=== PATIENT | female | born 1990 | race Caucasian/White ===

== ENCOUNTER 2018-06-02 15:26 | Emergency (ER) | payer OTHER, MEDICAID, SELFPAY ==
[2018-06-02 15:41] VITALS: BP 125/83; PULSE 87; RESP 14; TEMP 36.4; O2SAT 98; BMI 33.3
[2018-06-02] MEDS: diphenhydrAMINE 25 MG TABLET 50 MG PO (15:48)
--- NOTE | 2018-06-02 15:54 | ED.ALLEREA ---
HPI - Allergic Reaction <JENIFER Nagy - Last Filed: 06/02/18 21:37> General Chief complaint: Allergic Reaction Stated complaint: SWELLING OF RIGHT SIDE OF FACE Time Seen by Provider: 06/02/18 15:54 Source: patient Mode of arrival: ambulatory Limitations: no limitations History of Present Illness HPI narrative: 28-year-old healthy female that is a nonsmoker here for complaint of redness to her face and itching to her throat after she ate nuts earlier today. She denies any known allergies to nuts she denies having any prior food allergies. She states that she does not have any swelling to her mouth or tongue area. She is able to speak full sentences. She reports that the swelling to her face has resolved somewhat after eating nuts earlier today. She states that she had a pecans and almonds earlier today. She denies any rash. No other concerns or complaints at this timeframe. Related Data Home Medications Medication Instructions Recorded Confirmed buprenorphine-naloxone [Suboxone] 2 ea SUBLINGUAL QAM 06/02/18 06/02/18 duloxetine 30 mg PO BID 06/02/18 06/02/18 Previous Rx's Medication Instructions Recorded cetirizine 10 mg PO DAILY #7 tab 06/02/18 epinephrine [EpiPen 2-Arslan] 0.3 mg IM Q10M PRN #2 each 06/02/18 prednisone 40 mg PO DAILY #6 tab 06/02/18 Allergies Allergy/AdvReac Type Severity Reaction Status Date / Time ciprofloxacin [From Cipro] Allergy Severe Anaphylaxis Verified 06/02/18 15:48 sulfamethoxazole Allergy Severe Hives Verified 06/02/18 15:48 [From Septra] trimethoprim [From Septra] Allergy Severe Hives Verified 06/02/18 15:48 nitrofurantoin Allergy Intermediate Vomiting Verified 06/02/18 15:48 [From Macrobid] fentanyl AdvReac Severe Agitated Verified 06/02/18 15:48 morphine AdvReac Severe Agitated Verified 06/02/18 15:48 acetaminophen [From Vicodin] AdvReac Intermediate Nausea Verified 06/02/18 15:48 hydrocodone [From Vicodin] AdvReac Intermediate Nausea Verified 06/02/18 15:48 Review of Systems <JENIFER Nagy - Last Filed: 06/02/18 21:37> Constitutional Denies chills, Denies fever(s), Denies lethargy and Denies weakness Eyes Denies change in vision, Denies eye discharge, Denies irritation and Denies loss of vision ENT Comments: Redness to face and itching into the throat. Cardiovascular Denies chest pain, Denies irregular heart rhythm, Denies lightheadedness, Denies palpitations, Denies dyspnea, Denies dyspnea on exertion and Denies orthopnea Respiratory Denies cough, Denies dyspnea, Denies dyspnea on exertion and Denies wheezing Gastrointestinal Gastrointestinal: Denies abdominal pain, Denies change in bowel habits, Denies diarrhea, Denies nausea and Denies vomiting Genitourinary Denies hematuria, Denies flank pain, Denies urinary incontinence and Denies urinary urgency Musculoskeletal Denies back pain, Denies muscle weakness, Denies numbness and Denies tingling Integumentary/Breasts Denies pruritus, Denies erythema, Denies rash and Denies wounds Neurologic Denies confusion, Denies loss of vision, Denies numbness, Denies tingling and Denies weakness Psychiatric Denies anxiety, Denies confusion, Denies depression, Denies homicidal ideation and Denies suicidal ideation Endocrine Denies palpitations Hematologic/Lymphatic Denies easy bruising Allergic/Immunologic Denies wheezing PFSH <JENIFER Nagy - Last Filed: 06/02/18 21:37> Social History Smoking Status: Former smoker Exam <JENIFER Nagy - Last Filed: 06/02/18 21:37> Initial Vital Signs Initial Vital Signs: Vital Signs Temperature 97.6 F 06/02/18 15:41 Pulse Rate 87 06/02/18 15:41 Respiratory Rate 14 06/02/18 15:41 Blood Pressure 125/83 06/02/18 15:41 Pulse Oximetry 98 06/02/18 15:41 Const General: cooperative and well developed Nutritional Appearance: well nourished Orientation: alert, awake, oriented x3 and not confused [facility] Face and sinus: other (Redness to bilateral cheeks with swelling to right side. ) Mouth: oral mucosae normal, oropharynx normal and moist mucous membranes Throat: posterior oropharynx normal Eyes Conjunctivae: conjunctivae normal Sclera: sclerae normal Pupils: PERRL EOM: EOM intact bilaterally Resp Effort & Inspection: normal respiratory effort, able to speak in complete sentences, no respiratory distress and no use of accessory muscles Auscultation: clear to auscultation bilaterally, no rales, no rhonchi and no wheezes Cardio Rate: regular rate Rhythm: regular rhythm Heart Sounds: no click, no gallops, no murmurs and no rubs Pulses: normal peripheral pulses Skin General: no rashes or lesions noted, No jaundice and No petechiae Neuro General: alert, oriented x3, gait normal and no focal motor deficits Speech: speech normal Extrem General: full ROM, no clubbing, cyanosis or edema, no pedal edema and no calf tenderness <DO Eduard Kerr Last Filed: 06/11/18 16:38> Initial Vital Signs Initial Vital Signs: Vital Signs Temperature 97.6 F 06/02/18 15:41 Pulse Rate 87 06/02/18 15:41 Respiratory Rate 14 06/02/18 15:41 Blood Pressure 125/83 06/02/18 15:41 Pulse Oximetry 98 06/02/18 15:41 Course <JENIFER Nagy - Last Filed: 06/02/18 21:37> Orders Ordered: Discontinued Medications Diphenhydramine HCl (Benadryl) 50 mg PO NOW ONE Stop: 06/02/18 15:49 Last Admin: 06/02/18 15:48 Dose: 50 mg Prednisone (Deltasone) 40 mg PO NOW ONE Stop: 06/02/18 16:08 Last Admin: 06/02/18 16:10 Dose: 40 mg Vital Signs - 8 hr 06/02/18 15:41 06/02/18 16:18 06/02/18 17:45 Temperature 97.6 F Pulse Rate 87 71 75 Respiratory Rate 14 17 18 Blood Pressure 125/83 132/75 Blood Pressure [Right Arm] 131/71 Pulse Oximetry 98 98 97 <Oriana Tovar DO - Last Filed: 06/11/18 16:38> Orders Ordered: Discontinued Medications Diphenhydramine HCl (Benadryl) 50 mg PO NOW ONE Stop: 06/02/18 15:49 Last Admin: 06/02/18 15:48 Dose: 50 mg Prednisone (Deltasone) 40 mg PO NOW ONE Stop: 01/28/19 16:08 Last Admin: 06/02/18 16:10 Dose: 40 mg Vital Signs - 8 hr 06/02/18 15:41 06/02/18 16:18 06/02/18 17:45 Temperature 97.6 F Pulse Rate 87 71 75 Respiratory Rate 14 17 18 Blood Pressure 125/83 132/75 Blood Pressure [Right Arm] 131/71 Pulse Oximetry 98 98 97 MDM - Allergic Reaction <Robert AlJENIFER - Last Filed: 06/02/18 21:37> MDM Narrative Medical decision making narrative: She was given Benadryl and the emergency room and also prednisone. Her symptoms resolved after being observed in the emergency room. She states she desires to go home at this time she feels better. the nuts she ate earlier is suspicious however she is encouraged to look for possible other triggers. She is continued on prednisone for the next few days to help with anti-inflammatory effects. She is also given a prescription for EpiPen although no anaphylactic symptoms are present today will cover for worsening sensitivities. Follow up with primary care provider. For any worsening symptoms return to the emergency room. Discharge Plan Departure Patient Disposition: Home Clinical Impression: Allergic reaction Qualifiers: Encounter type: initial encounter Qualified Code(s): T78.40XA - Allergy, unspecified, initial encounter Discharge Date/Time: 06/02/18 17:45 Interventions: ED Discharge Assessment Last Done: 06/02/18 17:45 Instructions: DI for General Allergic Reactions Activity Restrictions/Additional Instructions: Signs and symptoms presents as allergic reaction most likely due to the nuts eating prior to arrival, however be aware of possible triggers in the environment other than the nuts. You are prescribed a short course of prednisone to help with anti-inflammatory effects. Also use cetirizine and antihistamine as directed. You also given a prescription for an EpiPen in case sensitivities worsen follow up with her primary care provider. Return emergency room for any worsening symptoms Prescriptions: New cetirizine 10 mg tablet 10 mg PO DAILY Qty: 7 RF: 0 prednisone 20 mg tablet 40 mg PO DAILY Qty: 6 RF: 0 epinephrine [EpiPen 2-Arslan] 0.3 mg/0.3 mL auto-injector 0.3 mg IM Q10M PRN (Reason: hypersensitivity reaction) Qty: 2 RF: 0 No Action duloxetine 30 mg capsule,delayed release(DR/EC) 30 mg PO BID RF: 0 buprenorphine-naloxone [Suboxone] 8-2 mg film 2 ea Sublingual QAM RF: 0 Referrals: [facility] [Provider Group] <Oriana Tovar DO - Last Filed: 06/11/18 16:38> Cosign ED Attending Cosignature Attestation: I was immediately available in the department for consultation. This documentation has been reviewed and I agree with assessment and plan. Supervised by Oriana Tovar DO
[2018-06-02] MEDS: predniSONE 20 MG TABLET 40 MG PO (16:10)
[2018-06-02 16:18] VITALS: BP 131/71; PULSE 71; RESP 17; O2SAT 98
[2018-06-02 17:45] VITALS: BP 132/75; PULSE 75; RESP 18; O2SAT 97
== END 2018-06-02 17:45 | disposition home or self-care (01) ==
PROVIDERS: Emergency Provider Nurse Practitioner Family
DX: T78.40XA Allergy, unspecified, initial encounter (principal)
CPT/HCPCS: 99282; 99283

== ENCOUNTER 2018-07-15 12:08 | Emergency (ER) | payer OTHER, MEDICAID, SELFPAY ==
[2018-07-15 12:14] VITALS: BP 138/85; PULSE 97; RESP 16; TEMP 37; O2SAT 97
--- NOTE | 2018-07-15 16:18 | DI.CT.S_ITS ---
PROCEDURE: CT HEAD/BRAIN WO CON INDICATIONS: Headache, Arnold-Chiari malformation surgery x3 TECHNIQUE: Noncontrast 4.5 mm thick angled axial sections acquired from the foramen magnum to the vertex, with coronal and sagittal reformats. For radiation dose reduction, the following was used: automated exposure control, adjustment of mA and/or kV according to patient size. COMPARISON: None. FINDINGS: Image quality: Excellent. CSF spaces: Basal cisterns are patent. No extra-axial fluid collections. Ventricles are normal in size and shape. Brain: No midline shift. No intracranial masses or hemorrhage. Vega-white matter interface is normal. Skull and face: Calvarium and visualized facial bones are intact, without suspicious lesions. Prior suboccipital craniotomy at the midline. Sinuses: Visualized sinuses and mastoids are clear. IMPRESSION: Prior suboccipital craniotomy consistent with Chiari malformation intervention. No source of current new headache is found. No comparison study from the past. Dictated by: Domenic Kennedy M.D. on 07/15/2018 at 15:48 Approved by: Domenic Kennedy M.D. on 07/15/2018 at 15:49
--- NOTE | 2018-07-15 16:23 | ED.HA ---
HPI - Headache General Chief Complaint: Headache Stated Complaint: migrane since yesterday,body hurts now Time Seen by Provider: 07/15/18 16:12 Source: patient Mode of arrival: ambulatory Limitations: no limitations History of Present Illness HPI Narrative: Patient is a 28-year-old female who presents with headache. He has been ongoing since yesterday. She has a history of Arnold-Chiari is and surgery for it x3. Is the 1st time they did not remove all of the tonsil the 3rd time was for an infection. She denies any fever or chills. She says this feels like his when she has had problems in the past. Her incision and scar site hurt. She feels nauseated no vomiting. She does not typically get headaches. She is on Suboxone currently. She was on narcotic medications for last 6 years and has been on getting off of those. MD Complaint: headache Related Data Home Medications Medication Instructions Recorded Confirmed buprenorphine-naloxone [Suboxone] 2 ea SUBLINGUAL QAM 06/02/18 06/02/18 duloxetine 30 mg PO BID 06/02/18 06/02/18 Previous Rx's Medication Instructions Recorded cetirizine 10 mg PO DAILY #7 tab 06/02/18 epinephrine [EpiPen 2-Arslan] 0.3 mg IM Q10M PRN #2 each 06/02/18 prednisone 40 mg PO DAILY #6 tab 06/02/18 Allergies Allergy/AdvReac Type Severity Reaction Status Date / Time ciprofloxacin [From Cipro] Allergy Severe Anaphylaxis Verified 06/02/18 15:48 sulfamethoxazole Allergy Severe Hives Verified 06/02/18 15:48 [From Septra] trimethoprim [From Septra] Allergy Severe Hives Verified 06/02/18 15:48 nitrofurantoin Allergy Intermediate Vomiting Verified 06/02/18 15:48 [From Macrobid] fentanyl AdvReac Severe Agitated Verified 06/02/18 15:48 morphine AdvReac Severe Agitated Verified 06/02/18 15:48 acetaminophen [From Vicodin] AdvReac Intermediate Nausea Verified 06/02/18 15:48 hydrocodone [From Vicodin] AdvReac Intermediate Nausea Verified 06/02/18 15:48 Review of Systems Review of Systems GENERAL: Denies chills, fatigue, malaise, fever, sweats, travel HEENT: Denies sinus pain, ear pain, sore throat, difficulty swallowing, neck pain RESPIRATORY: Denies dyspnea, cough, wheezing, hemoptysis, sputum. CARDIOVASCULAR: Denies chest pain, palpitations, orthopnea, edema GASTROINTESTINAL: Denies nausea, vomiting, abdominal pain, diarrhea, constipation, melena. : Denies dysuria, frequency, incontinence, hematuria, urinary retention, flank pain. MUSCULOSKELETAL: Denies weakness, joint pain, or bony pain SKIN: No rash, no erythema, no pruritus NEUROLOGIC: See HPI PSYCHIATRIC: No concerning psychosocial issues. 12 point review of systems is negative except for those stated above and HPI [facility] Medical History Arnold-Chiari malformation (Acute) Social History Smoking Status: Former smoker substance use type: painkillers Social History Smoking Status: Former smoker substance use type: painkillers Exam Initial Vital Signs Initial Vital Signs: Vital Signs Temperature 98.6 F 07/15/18 12:14 Pulse Rate 97 H 07/15/18 12:14 Respiratory Rate 16 07/15/18 12:14 Blood Pressure 138/85 07/15/18 12:14 Pulse Oximetry 97 07/15/18 12:14 GENERAL: Well-appearing, well-nourished and in no acute distress. HEENT: Head atraumatic,EOMI, pupils reactive, face symmetric, moist mucous membranes NECK: Is the patient's skin is extremely tender over the surgical scar. She does have limited flexion and extension due to pain. CARDIOVASCULAR: Regular rate and rhythm without murmurs, rubs or gallops. RESPIRATORY: Breath sounds equal bilaterally, no wheezes rales or rhonchi. ABDOMEN: Soft, nontender. Normoactive bowel sounds all 4 quadrants. No guarding or rebound. EXTREMITIES: Normal range of motion, no clubbing or edema. Neurovascularly intact NEUROLOGICAL: Alert and oriented x4.Normal gait and speech. Cranial nerves II through XII grossly intact. Good [id number], good [id number], strength equal bilaterally, no dysarthria or aphasia, sensation in tact to soft touch bilaterally, no visual changes, no facial droop SKIN: Warm, dry, no laceration, no petechiae, no rashes or lesions. Course Orders Ordered: ED Orders 07/15/18 16:18 CT head/brain wo con Stat 07/15/18 16:50 Complete Blood Count AUTO DIFF Stat Comprehensive Metabolic Panel Stat Discontinued Medications Diphenhydramine HCl (Benadryl) 25 mg IV NOW ONE Stop: 07/15/18 16:18 Last Admin: 07/15/18 17:00 Dose: 25 mg Sodium Chloride (Normal Saline 0.9%) 1,000 mls @ 1,000 mls/hr IV BOLUS ONE Stop: 07/15/18 17:16 Last Infusion: 07/15/18 18:09 Dose: 0 mls/hr Admin: 07/15/18 17:00 Dose: 1,000 mls/hr Ketorolac Tromethamine (Toradol) 30 mg IV NOW ONE Stop: 07/15/18 16:20 Last Admin: 07/15/18 17:00 Dose: 30 mg Prochlorperazine (Compazine) 10 mg IV NOW ONE Stop: 07/15/18 16:18 Last Admin: 07/15/18 16:58 Dose: 10 mg Vital Signs - 8 hr 07/15/18 12:14 07/15/18 16:58 07/15/18 17:00 Temperature 98.6 F 98.8 F Pulse Rate 97 H 83 Respiratory Rate 16 Blood Pressure 138/85 152/80 H Blood Pressure [Right Arm] Pulse Oximetry 97 07/15/18 17:04 Temperature 98.8 F Pulse Rate 83 Respiratory Rate 15 Blood Pressure Blood Pressure [Right Arm] 152/80 H Pulse Oximetry 99 MDM - Headache Lab Data Attestation: I reviewed the patient's lab results. Result diagrams: 07/15/18 16:50 07/15/18 16:50 Lab Results 07/15/18 07/15/18 Range/Units 16:50 16:50 WBC 7.2 (4.5-11.0) X10^3/uL RBC 4.05 (4.0-5.2) X10^6/uL Hgb 13.0 (12.0-16.0) g/dL Hct 38.0 (36-46) % MCV 94.0 (80-100) fL MCH 32.1 (26-34) PG MCHC 34.1 (30-36) % RDW 12.7 (11.6-14.8) % Plt Count 293 (150-400) X10^3/uL Neut % (Auto) 77.9 H (50-75) % Lymph % (Auto) 15.4 L (25-40) % [place] % (Auto) 5.3 (3-14) % Eos % (Auto) 1.1 L (2-4) % Baso % (Auto) 0.3 (0-2) % Neut # (Auto) 5600 (3112-4757) /uL Lymph # (Auto) 1100 (9851-8410) /uL [place] # (Auto) 400 (0-900) /uL Eos # (Auto) 100 (0-450) /uL Baso # (Auto) 0 (0-100) /uL Sodium 138 (137-145) mmol/L Potassium 4.1 (3.4-5.1) mmol/L Chloride 104 (98-107) mmol/L Carbon Dioxide 25 (22-32) mmol/L BUN 6 L (7-17) mg/dL Creatinine 0.50 L (0.52-1.04) mg/dL Estimated GFR > 60.0 (>60) mL/min BUN/Creatinine Ratio 12.0 (6-22) Glucose 99 (70-100) mg/dL Calcium 8.8 (8.4-10.2) mg/dL Total Bilirubin 0.6 (0.2-1.3) mg/dL AST 24 (14-36) IU/L ALT 26 (9-52) IU/L Alkaline Phosphatase 72 (38-126) U/L Total Protein 7.6 (6.3-8.2) g/dL Albumin 4.3 (3.5-5.0) g/dL Globulin 3.3 (1.7-4.1) g/dL Albumin/Globulin Ratio 1.3 (1.0-2.8) Point of Care Testing Test Results Negative Urine Dip Bedside Urine Glucose Negative Bedside Urine Bilirubin - Negative Bedside Urine Ketone - Negative Urine Specific [place] 1.015 Bedside Urine Occult Blood - Negative Bedside Urine pH 8.5 Bedside Urine Protein - Negative Bedside Urine Urobilinogen - Negative Bedside Urine Nitrite - Negative Bedside Urine Leukocytes - Negative Esterase Imaging Data CT scan - head: Radiologist's impression: PROCEDURE: CT HEAD/BRAIN WO CON INDICATIONS: Headache, Arnold-Chiari malformation surgery x3 TECHNIQUE: Noncontrast 4.5 mm thick angled axial sections acquired from the foramen magnum to the vertex, with coronal and sagittal reformats. For radiation dose reduction, the following was used: automated exposure control, adjustment of mA and/or kV according to patient size. COMPARISON: None. FINDINGS: Image quality: Excellent. CSF spaces: Basal cisterns are patent. No extra-axial fluid collections. Ventricles are normal in size and shape. Brain: No midline shift. No intracranial masses or hemorrhage. Vega-white matter interface is normal. Skull and face: Calvarium and visualized facial bones are intact, without suspicious lesions. Prior suboccipital craniotomy at the midline. Sinuses: Visualized sinuses and mastoids are clear. IMPRESSION: Prior suboccipital craniotomy consistent with Chiari malformation intervention. No source of current new headache is found. No comparison study from the past. Dictated by: Domenic Kennedy M.D. on 07/15/2018 at 15:48 MDM Narrative Medical decision making narrative: The patient overall is starting to feel better. Head CT is does not show any Arnold-Chiari malformation. Patient is afebrile no leukocytosis do not believe to have meningitis. At this time she feels better ready and able to go home. Discharge Plan Departure Patient Disposition: Home Clinical Impression: Headache Qualifiers: Headache type: unspecified Headache chronicity pattern: acute headache Intractability: not intractable Qualified Code(s): R51 - Headache Discharge Date/Time: 07/15/18 18:10 Interventions: ED Discharge Assessment Last Done: 07/15/18 18:09 Instructions: DI for Headache Activity Restrictions/Additional Instructions: *You have been diagnosed with headache *What to do: Blood work and CT scan are reassuring today *Continue to take medications as directed *Follow up with your primary care provider in 2-3 days *Return to ER if you should have any new, worsening or concerning symptoms Prescriptions: No Action duloxetine 30 mg capsule,delayed release(DR/EC) 30 mg PO BID RF: 0 buprenorphine-naloxone [Suboxone] 8-2 mg film 2 ea Sublingual QAM RF: 0 cetirizine 10 mg tablet 10 mg PO DAILY Qty: 7 RF: 0 prednisone 20 mg tablet 40 mg PO DAILY Qty: 6 RF: 0 epinephrine [EpiPen 2-Arslan] 0.3 mg/0.3 mL auto-injector 0.3 mg IM Q10M PRN (Reason: hypersensitivity reaction) Qty: 2 RF: 0
[2018-07-15 16:58] VITALS: BP 152/80; PULSE 83
[2018-07-15] MEDS: PROCHLORPERAZINE 10 MG/2 ML VIAL IV (16:58)
[2018-07-15 17:00] VITALS: TEMP 37.1
[2018-07-15] MEDS: diphenhydrAMINE 50 MG/ML VIAL 25 MG IV (17:00)
[2018-07-15] MEDS: KETOROLAC 60 MG/2 ML VIAL 30 MG IV (17:00)
[2018-07-15] MEDS: SODIUM CHLORIDE 0.9% 1,000 ML 1000 ML IV (17:00)
[2018-07-15 17:04] VITALS: BP 152/80; PULSE 83; RESP 15; TEMP 37.1; O2SAT 99
[2018-07-15 17:05] LABS: Add Manual Diff / Slide Review NO; Basophils Absolute Auto 0 /uL (0-100); Basophils Percent Auto 0.3 % (0-2); Eosinophils Absolute Auto 100 /uL (0-450); Eosinophils Percent Auto 1.1 % (2-4); Lymphocytes Absolute Auto 1100 /uL (1100-4500); Lymphocytes Percent Auto 15.4 % (25-40); Mean Corpuscular HGB Conc 34.1 % (30-36); Mean Corpuscular Hemoglobin 32.1 PG (26-34); Monocytes Absolute Auto 400 /uL (0-900); Monocytes Percent Auto 5.3 % (3-14); Neutrophils Absolute Auto 5600 /uL (1500-7000); Neutrophils Percent Auto 77.9 % (50-75); Platelet Count 293 X10^3/uL (150-400); Red Blood Cell Count 4.05 X10^6/uL (4.0-5.2); Red Cell Distribution Width 12.7 % (11.6-14.8); White Blood Cell Count 7.2 X10^3/uL (4.5-11.0)
[2018-07-15 17:13] LABS: Alanine Aminotransferase 26 IU/L (9-52); Albumin 4.3 g/dL (3.5-5.0); Albumin Globulin Ratio 1.3 (1.0-2.8); Alkaline Phosphatase 72 U/L (38-126); Aspartate Aminotransferase 24 IU/L (14-36); Bilirubin Total 0.6 mg/dL (0.2-1.3); Blood Urea Nitrogen 6 mg/dL (7-17); Calcium 8.8 mg/dL (8.4-10.2); Carbon Dioxide 25 mmol/L (22-32); Chloride 104 mmol/L (98-107); Estimated Glomerular Filt Rate > 60.0 mL/min (>60); Globulin 3.3 g/dL (1.7-4.1); Glucose 99 mg/dL (70-100); HEMOLYSIS < 15 (0-50); Potassium 4.1 mmol/L (3.4-5.1); Sodium 138 mmol/L (137-145); Total Protein 7.6 g/dL (6.3-8.2)
--- NOTE | 2018-07-15 17:36 | PC.NURSE ---
Patient given warm blankets and cold compress for head.
== END 2018-07-15 18:10 | disposition home or self-care (01) ==
PROVIDERS: Emergency Provider Emergency Medicine
DX: R51 Headache (principal)
CPT/HCPCS: 36591; 70450; 80053; 81003; 81025; 85025; 96361; 96374; 96375; 99283; 99285; J0780; J1200; J1885

== ENCOUNTER 2019-09-26 13:56 | Emergency (ER) | payer OTHER, SELFPAY ==
[2019-09-26 14:03] VITALS: BP 145/77; PULSE 81; RESP 16; TEMP 37; O2SAT 98; BMI 32.5
[2019-09-26 15:11] VITALS: BP 133/71; PULSE 77; RESP 20; O2SAT 99
--- NOTE | 2019-09-26 15:12 | ED.DENTAL ---
HPI - Dental/Oral <JENIFER Drake - Last Filed: 09/26/19 20:40> General Chief complaint: Dental/Oral Stated complaint: Tooth infection Time Seen by Provider: 09/26/19 14:13 Source: patient Mode of arrival: Ambulatory History of Present Illness HPI Narrative: 29yo female presents to the emergency department for right upper tooth pain that started about a week ago and has been increasing in severity. She states a few weeks ago she broke off part of her tooth, she was given a prescription for an antibiotic which helped relieve the pain. Five days after she finished the antibiotic, symptoms returned. She has has a dentist appointment scheduled later this week. She denies any fevers, chills, nausea, vomiting, diarrhea, chest pain, shortness of breath, or any other concerns. Related Data Home Medications Medication Instructions Recorded Confirmed buprenorphine-naloxone [Suboxone] 2 ea SUBLINGUAL QAM 06/02/18 06/02/18 duloxetine 30 mg PO BID 06/02/18 06/02/18 Previous Rx's Medication Instructions Recorded cetirizine 10 mg PO DAILY #7 tab 06/02/18 epinephrine [EpiPen 2-Arslan] 0.3 mg IM Q10M PRN #2 each 06/02/18 prednisone 40 mg PO DAILY #6 tab 06/02/18 amoxicillin-pot clavulanate 1 tab PO BID 7 Days #14 tab 09/26/19 [Augmentin] fluconazole 150 mg PO Q3D #2 tab 09/26/19 Allergies Allergy/AdvReac Type Severity Reaction Status Date / Time ciprofloxacin [From Cipro] Allergy Severe Anaphylaxis Verified 09/26/19 14:06 sulfamethoxazole Allergy Severe Hives Verified 09/26/19 14:06 [From Septra] trimethoprim [From Septra] Allergy Severe Hives Verified 09/26/19 14:06 nitrofurantoin Allergy Intermediate Vomiting Verified 09/26/19 14:06 [From Macrobid] fentanyl AdvReac Severe Agitated Verified 09/26/19 14:06 morphine AdvReac Severe Agitated Verified 09/26/19 14:06 acetaminophen [From Vicodin] AdvReac Intermediate Nausea Verified 09/26/19 14:06 hydrocodone [From Vicodin] AdvReac Intermediate Nausea Verified 09/26/19 14:06 Review of Systems <JENIFER Drake - Last Filed: 09/26/19 20:40> Review of Systems Narrative: REVIEW OF SYSTEMS: GENERAL: Denies fevers. HENT: No head trauma or hearing loss. Reports tooth pain, see HPI. CARDIOVASCULAR: No chest pain or syncope. RESPIRATORY: No shortness of breath. GASTROINTESTINAL: No nausea, vomiting, diarrhea, or constipation. MUSCULOSKELETAL: No weakness or injury. INTEGUMENTARY: No rash, lesions, or pruritus. NEURO: No memory loss, or confusion. Patient History <JENIFER Drake - Last Filed: 09/26/19 20:40> Medical History Arnold-Chiari malformation (Acute) Social History Smoking Status: Former smoker substance use type: painkillers Smoking Status: Former smoker alcohol intake frequency: 0-2 drinks per day Substance Use Type: prescription drug Exam <JENIFER Drake - Last Filed: 09/26/19 20:40> Initial Vital Signs Initial Vital Signs: Vital Signs Temperature 98.6 F 09/26/19 14:03 Pulse Rate 81 09/26/19 14:03 Respiratory Rate 16 09/26/19 14:03 Blood Pressure 145/77 H 09/26/19 14:03 Pulse Oximetry 98 09/26/19 14:03 PHYSICAL EXAMINATION: GENERAL: Well groomed, alert, and cooperative. Answers questions promptly and appropriately. Vital signs noted. HENT: Normocephalic, atraumatic. Ear canals patent. Oropharynx without erythema, multiple caries noted. Partially fractured tooth with a small amount of surrounding gingivitis noted tooth #15 versus #14. RESPIRATORY: Normal respiratory rate, trachea midline, airway patent. No stridor, nasal flaring or accessory muscle use. MUSCULOSKELETAL: Normal gait and coordination. Equal tone and mass bilaterally. EXTREMITIES: Moves all extremities. SKIN: Warm, dry, soft, appropriate color for ethnicity. No lesions, rashes, or wounds to visualized areas. NEURO: Alert and Oriented X 3. Good coordination. No ataxia or cognitive issues. PSYCH: Appropriate affect and mood. <Evelio Ferreira MD - Last Filed: 09/27/19 15:21> Initial Vital Signs Initial Vital Signs: Vital Signs Temperature 98.6 F 09/26/19 14:03 Pulse Rate 81 09/26/19 14:03 Respiratory Rate 16 09/26/19 14:03 Blood Pressure 145/77 H 09/26/19 14:03 Pulse Oximetry 98 09/26/19 14:03 Course <JENIFER Drake - Last Filed: 09/26/19 20:40> Vital Signs Vital signs: Vital Signs - 8 hr 09/26/19 14:03 09/26/19 15:11 Temperature 98.6 F Pulse Rate 81 77 Respiratory Rate 16 20 Blood Pressure 145/77 H 133/71 Pulse Oximetry 98 99 <Evelio Ferreira MD - Last Filed: 09/27/19 15:21> Vital Signs Vital signs: Vital Signs - 8 hr 09/26/19 14:03 09/26/19 15:11 Temperature 98.6 F Pulse Rate 81 77 Respiratory Rate 16 20 Blood Pressure 145/77 H 133/71 Pulse Oximetry 98 99 MDM - Dental/Oral <JENIFER Drake - Last Filed: 09/26/19 20:40> Medical Records Attestation: I reviewed the patient's medical records. Lab Data Attestation: I reviewed the patient's lab results. MDM Narrative Medical decision making narrative: 29-year-old female presents emergency department for tooth pain over the past few days following a fractured tooth. Exam with mild surrounding gingivitis, fractured tooth, and sensitivity concerning for tooth abscess. Patient was prescribed Augmentin due to recent treatment amoxicillin which did improve symptoms but pain and irritation return within 5 days of completion of antibiotics. Patient has a scheduled dentist appointment, we discussed the importance of keeping this appointment as this will treat because of continued infection. Return precautions given for new or worsening symptoms. No concern for sepsis due to lack of systemic symptoms such as fever, facial swelling, tachycardia, or any other concerns. Discharge Plan Departure Patient Disposition: Home Clinical Impression: Toothache, Dental caries, Dental abscess Discharge Date/Time: 09/26/19 15:12 Instructions: Tooth Abscess, DI for Dental Pain Activity Restrictions/Additional Instructions: Thank you for entrusting me with your care today. As discussed, I suspect your tooth pain is caused by an infection. I prescribed you antibiotics, please take these as directed. Follow up with your dentist as scheduled. Return emergency department for any new or worsening symptoms such as high fevers, uncontrollable vomiting, severe pain, or any other concerns. Prescriptions: New amoxicillin-pot clavulanate [Augmentin] 875-125 mg tablet 1 tab PO BID 7 Days Qty: 14 RF: 0 fluconazole 150 mg tablet 150 mg PO Q3D Qty: 2 RF: 0 No Action duloxetine 30 mg capsule,delayed release(DR/EC) 30 mg PO BID RF: 0 buprenorphine-naloxone [Suboxone] 8-2 mg film 2 ea Sublingual QAM RF: 0 cetirizine 10 mg tablet 10 mg PO DAILY Qty: 7 RF: 0 prednisone 20 mg tablet 40 mg PO DAILY Qty: 6 RF: 0 epinephrine [EpiPen 2-Arslan] 0.3 mg/0.3 mL auto-injector 0.3 mg IM Q10M PRN (Reason: hypersensitivity reaction) Qty: 2 RF: 0
== END 2019-09-26 15:12 | disposition home or self-care (01) ==
PROVIDERS: Emergency Provider Nurse Practitioner
DX: K08.89 Other specified disorders of teeth and supporting structures (principal); K02.9 Dental caries, unspecified; K04.7 Periapical abscess without sinus
CPT/HCPCS: 99281

== ENCOUNTER 2019-10-13 14:50 | Emergency (ER) | payer OTHER, SELFPAY ==
[2019-10-13 14:55] VITALS: BP 139/67; PULSE 98; RESP 22; TEMP 36.4; O2SAT 99
[2019-10-13] MEDS: SODIUM CHLORIDE 0.9% 1,000 ML 150 ML IV (15:16)
[2019-10-13 15:25] LABS: Add Manual Diff / Slide Review NO; Basophils Absolute Auto 100 /uL (0-100); Basophils Percent Auto 0.8 % (0-2); Eosinophils Absolute Auto 200 /uL (0-450); Eosinophils Percent Auto 2.9 % (2-4); Hemoglobin 12.8 g/dL (12.0-16.0); Lymphocytes Absolute Auto 2500 /uL (1100-4500); Lymphocytes Percent Auto 38.6 % (25-40); Mean Corpuscular HGB Conc 34.5 % (30-36); Mean Corpuscular Volume 92.6 fL (80-100); Monocytes Absolute Auto 500 /uL (0-900); Monocytes Percent Auto 7.8 % (3-14); Neutrophils Absolute Auto 3200 /uL (1500-7000); Neutrophils Percent Auto 49.9 % (50-75); Platelet Count 291 X10^3/uL (150-400); Red Cell Distribution Width 12.7 % (11.6-14.8); White Blood Cell Count 6.4 X10^3/uL (4.5-11.0)
--- NOTE | 2019-10-13 15:28 | ED_ITS ---
HPI - General Adult General Chief complaint: Abdominal Pain Stated complaint: rt side cramping Time Seen by Provider: 10/13/19 15:21 Source: patient Mode of arrival: Ambulatory Limitations: no limitations History of Present Illness HPI narrative: Patient is a 29-year-old female here for evaluation of right- sided flank ?cramping? she states that the symptoms started this morning after she woke up. She went to bed last night without any problems. Has not had a menstrual cycle in the past several weeks. She does have the implanon in place. She states she has urinated multiple times today which she thinks is p otentially more frequently than normal which has not changed any of her symptoms. Has not had a bowel movement today. No nausea or vomiting. Has had her appendix out but no other abdominal surgeries. He states that the pain initially started as constant and now has become intermittent. No fevers. Related Data Home Medications Medication Instructions Recorded Confirmed buprenorphine-naloxone [Suboxone] 2 ea SUBLINGUAL QAM 06/02/18 06/02/18 duloxetine 30 mg PO BID 06/02/18 06/02/18 Previous Rx's Medication Instructions Recorded cetirizine 10 mg PO DAILY #7 tab 06/02/18 epinephrine [EpiPen 2-Arslan] 0.3 mg IM Q10M PRN #2 each 06/02/18 prednisone 40 mg PO DAILY #6 tab 06/02/18 fluconazole 150 mg PO Q3D #2 tab 09/26/19 Allergies Allergy/AdvReac Type Severity Reaction Status Date / Time ciprofloxacin [From Cipro] Allergy Severe Anaphylaxis Verified 09/26/19 14:06 sulfamethoxazole Allergy Severe Hives Verified 09/26/19 14:06 [From Septra] trimethoprim [From Septra] Allergy Severe Hives Verified 09/26/19 14:06 nitrofurantoin Allergy Intermediate Vomiting Verified 09/26/19 14:06 [From Macrobid] fentanyl AdvReac Severe Agitated Verified 09/26/19 14:06 morphine AdvReac Severe Agitated Verified 09/26/19 14:06 acetaminophen [From Vicodin] AdvReac Intermediate Nausea Verified 09/26/19 14:06 hydrocodone [From Vicodin] AdvReac Intermediate Nausea Verified 09/26/19 14:06 Review of Systems Constitutional Constitutional: Denies fever(s) Cardiovascular Cardiovascular: Denies chest pain and Denies dyspnea Respiratory Respiratory: Denies dyspnea Gastrointestinal Comments: Right-sided flank cramping Genitourinary Comments: Urinary frequency without hematuria Musculoskeletal Musculoskeletal: Denies arthralgias and Denies myalgias Integumentary/Breasts Skin/Breast: Denies rash Neurologic Neurologic: Denies behavioral changes Psychiatric Psychiatric: Denies behavioral changes Hematologic/Lymphatic Hematologic/Lymphatic: Denies easy bleeding and Denies easy bruising Patient History Medical History Arnold-Chiari malformation (Acute) Social History Smoking Status: Former smoker substance use type: painkillers Smoking Status: Former smoker alcohol intake frequency: 0-2 drinks per day Substance Use Type: prescription drug Exam Initial Vital Signs Initial Vital Signs: Vital Signs Temperature 97.5 F L 10/13/19 14:55 Pulse Rate 98 H 10/13/19 14:55 Respiratory Rate 22 10/13/19 14:55 Blood Pressure 139/67 10/13/19 14:55 Pulse Oximetry 99 10/13/19 14:55 Const General: cooperative, comfortable and well developed Limitations: mental status not altered HENMT Head: normal to inspection and normocephalic Resp Effort & Inspection: normal respiratory effort Auscultation: clear to auscultation bilaterally Cardio Rate: regular rate Rhythm: regular rhythm GI Inspection: non-distended Palpation: soft, No firm and No tender Back/Spine/Pelvis Back: No CVA tenderness Skin Lesions: no lesions Rashes: no rashes Neuro General: patient alert and patient awake Cognition: normal cognition Speech: speech normal Extrem General: normal to inspection and capillary refill normal Psych Appearance: grossly normal and well kempt Scores GCS [place] coma scale eye opening: Spontaneous [place] coma scale verbal response: Orientated [place] coma scale motor response: Obey commands [place] coma scale total score: 15 Course Orders Ordered: ED Orders 10/13/19 15:15 Complete Blood Count AUTO DIFF Stat Comprehensive Metabolic Panel Stat Lipase Stat 10/13/19 15:29 CT kidney ureter bladder (KUB) Stat Sodium Chloride (Normal Saline 0.9%) 1,000 mls @ 150 mls/hr IV CONT MARIAH Last Admin: 10/13/19 15:16 Dose: 150 mls/hr Documented by: DAVI Vital Signs Vital signs: Vital Signs - 8 hr 10/13/19 14:55 Temperature 97.5 F L Pulse Rate 98 H Respiratory Rate 22 Blood Pressure 139/67 Pulse Oximetry 99 Medical Decision Making Lab Data Lab results reviewed: Yes I reviewed the patient's lab results. Result diagrams: 10/13/19 15:15 10/13/19 15:15 Labs: Lab Results 10/13/19 10/13/19 Range/Units 15:15 15:15 WBC 6.4 (4.5-11.0) X10^3/uL RBC 4.00 (4.0-5.2) X10^6/uL Hgb 12.8 (12.0-16.0) g/dL Hct 37.0 (36-46) % MCV 92.6 (80-100) fL MCH 32.0 (26-34) PG MCHC 34.5 (30-36) % RDW 12.7 (11.6-14.8) % Plt Count 291 (150-400) X10^3/uL Neut % (Auto) 49.9 L (50-75) % Lymph % (Auto) 38.6 (25-40) % [place] % (Auto) 7.8 (3-14) % Eos % (Auto) 2.9 (2-4) % Baso % (Auto) 0.8 (0-2) % Neut # (Auto) 3200 (8337-5499) /uL Lymph # (Auto) 2500 (0337-9364) /uL [place] # (Auto) 500 (0-900) /uL Eos # (Auto) 200 (0-450) /uL Baso # (Auto) 100 (0-100) /uL Sodium 138 (137-145) mmol/L Potassium 3.7 (3.4-5.1) mmol/L Chloride 103 (98-107) mmol/L Carbon Dioxide 27 (22-32) mmol/L BUN 10 (7-17) mg/dL Creatinine 0.54 (0.52-1.04) mg/dL Estimated GFR > 60.0 (>60) mL/min BUN/Creatinine Ratio 18.5 (6-22) Glucose 98 (70-100) mg/dL Calcium 9.4 (8.4-10.2) mg/dL Total Bilirubin 0.4 (0.2-1.3) mg/dL AST 23 (14-36) IU/L ALT 13 (<35) IU/L Alkaline Phosphatase 56 (38-126) U/L Total Protein 8.2 (6.3-8.2) g/dL Albumin 4.7 (3.5-5.0) g/dL Globulin 3.5 (1.7-4.1) g/dL Albumin/Globulin Ratio 1.3 (1.0-2.8) Lipase 46 (23-300) U/L Point of Care Testing Test Results Negative Urine Dip Bedside Urine Glucose Negative Bedside Urine Bilirubin - Negative Bedside Urine Ketone - Negative Urine Specific [place] 1.030 Bedside Urine Occult Blood - Negative Bedside Urine pH 5.5 Bedside Urine Protein - Negative Bedside Urine Urobilinogen - Negative Bedside Urine Nitrite - Negative Bedside Urine Leukocytes - Negative Esterase Point of care testing: Point of Care Testing Test Results Negative Urine Dip Bedside Urine Glucose Negative Bedside Urine Bilirubin - Negative Bedside Urine Ketone - Negative Urine Specific [place] 1.030 Bedside Urine Occult Blood - Negative Bedside Urine pH 5.5 Bedside Urine Protein - Negative Bedside Urine Urobilinogen - Negative Bedside Urine Nitrite - Negative Bedside Urine Leukocytes - Negative Esterase Imaging Data CT scan - abdomen/pelvis: Radiologist's Impression: [place] [id number] CT Scan Report Signed Patient: Rula Betancourt [facility]#: [id number] : 1990Acct:[id number] Age/Sex: te of Service: 10/13/19 Loc: ED Accession Number: [id number] Procedure: CT kidney ureter bladder (KUB) Ordering Provider: Topher Garza D.O. PROCEDURE: CT KIDNEY URETER BLADDER (KUB) INDICATIONS: Right-sided pain concern for renal stone TECHNIQUE: Noncontrast 5 mm thick sections acquired from the diaphragms to the symphysis. 5 mm thick coronal and sagittal reformats were then performed. For radiation dose reduction, the following was used: automated exposure control, adjustment of mA and/or kV according to patient size. COMPARISON: None. FINDINGS: Image quality: Diagnostic. Lung bases: Lung bases are clear. Heart size is normal. Urinary system: The kidneys are normal in size. No renal calculi are evident. Please note that evaluation of the kidneys for subtle renal lesions is suboptimal/inadequate for evaluation of cystic or solid lesions. No obvious renal lesions are identified. No hydronephrosis is present. However, there is slight prominence of the right renal collecting system and proximal right ureter when compared to the left. Near the vesicoureteral junction on the right, there is a 1 mm calcification identified (image 80, series 2), which could potentially represent a distal right ureteral calculus. However, the distal ureter is not adequately seen and this could potentially simply represent a vascular calcification. No definite left renal calculi are identified. Other solid organs: Liver is normal in size. Gallbladder is not enlarged or inflamed. Pancreas is normal in contours. Spleen has a bulky appearance, but is not significantly enlarged. No adrenal nodules. Peritoneum and bowel: The stomach is unremarkable. The small bowel loops are nondilated. There is a moderate to large amount of residual stool identified within the colon. There is no free fluid, loculated fluid collection or free air. The appendix is surgically absent. Nodes and vessels: No retroperitoneal or mesenteric adenopathy by size criteria. Aorta and inferior vena cava are normal in caliber. Other pelvic soft tissues: No free pelvic fluid. No inguinal hernias or adenopathy. The uterus and ovaries are not enlarged, but also are not adequately characterized on CT. Bones: No suspicious bony lesions. No vertebral body compression fractures. Mild degenerative changes of the imaged thoracolumbar spine are present. There moderate degenerative changes of the sacroiliac joints. IMPRESSION: 1. Questionable punctate (1 mm) distal right ureteral calculus. There is no hydronephrosis or hydroureter. 2. No nephrolithiasis. 3. Possible constipation. No bowel obstruction. Dictated by: Dominick Goodrich M.D. on 10/13/2019 at 14:51 Approved by: Dominick Goodrich M.D. on 10/13/2019 at 14:58 MDM Narrative Medical decision making narrative: Patient's history and physical exam is consistent with a right-sided ureteral stone/renal colic. I have low suspicion for pyelonephritis. Kidney functions unremarkable. Patient does take Suboxone so does not want any pain medication. No fevers. I did discuss the CT scan findings with her. Discussed return precautions and follow-up instructions. She expressed understanding and agreement. Discharge Plan Departure Patient Disposition: Home Clinical Impression: Renal colic on right side Instructions: DI for Kidney Stones Activity Restrictions/Additional Instructions: Be sure to drink plenty of fluids. The stone is of a size that you should pass it on your own. If you develop the inability to urinate or fevers were the abdominal pain changes please return to the emergency department for any new or worsening symptoms. Prescriptions: No Action duloxetine 30 mg capsule,delayed release(DR/EC) 30 mg PO BID RF: 0 buprenorphine-naloxone [Suboxone] 8-2 mg film 2 ea Sublingual QAM RF: 0 cetirizine 10 mg tablet 10 mg PO DAILY Qty: 7 RF: 0 prednisone 20 mg tablet 40 mg PO DAILY Qty: 6 RF: 0 epinephrine [EpiPen 2-Arslan] 0.3 mg/0.3 mL auto-injector 0.3 mg IM Q10M PRN (Reason: hypersensitivity reaction) Qty: 2 RF: 0 fluconazole 150 mg tablet 150 mg PO Q3D Qty: 2 RF: 0 Referrals: Jarocho Mckeon MD [Primary Care Provider] -
[2019-10-13 15:42] LABS: Alanine Aminotransferase 13 IU/L (<35); Albumin 4.7 g/dL (3.5-5.0); Albumin Globulin Ratio 1.3 (1.0-2.8); Alkaline Phosphatase 56 U/L (38-126); Aspartate Aminotransferase 23 IU/L (14-36); BUN Creatinine Ratio 18.5 (6-22); Bilirubin Total 0.4 mg/dL (0.2-1.3); Blood Urea Nitrogen 10 mg/dL (7-17); Calcium 9.4 mg/dL (8.4-10.2); Carbon Dioxide 27 mmol/L (22-32); Chloride 103 mmol/L (98-107); Estimated Glomerular Filt Rate > 60.0 mL/min (>60); Globulin 3.5 g/dL (1.7-4.1); Glucose 98 mg/dL (70-100); HEMOLYSIS < 15 (0-50); Lipase 46 U/L (23-300); Potassium 3.7 mmol/L (3.4-5.1); Sodium 138 mmol/L (137-145); Total Protein 8.2 g/dL (6.3-8.2)
[2019-10-13 16:39] VITALS: BP 129/78; PULSE 78; RESP 18; O2SAT 98
== END 2019-10-13 16:39 | disposition home or self-care (01) ==
PROVIDERS: Emergency Provider Emergency Medicine; PCP Internal Medicine
DX: N20.0 Calculus of kidney (principal)
CPT/HCPCS: 36415; 74176; 80053; 81003; 81025; 83690; 85025; 96360; 99284

== ENCOUNTER 2019-10-24 02:19 | Observation (INO) | payer OTHER, SELFPAY ==
[2019-10-24] VITALS (11 sets, daily range): BP systolic 120–149; BP diastolic 63–86; PULSE 80–117; RESP 16–20; TEMP 36.1–37.8; O2SAT 93–100; BMI 33.8
--- NOTE | 2019-10-24 02:29 | DI.CT.S_ITS ---
PROCEDURE: CT HEAD/BRAIN WO CON INDICATIONS: worst headache of life TECHNIQUE: Noncontrast 4.5 mm thick angled axial sections acquired from the foramen magnum to the vertex, with coronal and sagittal reformats. For radiation dose reduction, the following was used: automated exposure control, adjustment of mA and/or kV according to patient size. COMPARISON: [facility], CT, CT HEAD/BRAIN WO CON, 07/15/2018, 16:20. FINDINGS: Image quality: Diagnostic. CSF spaces: Basal cisterns are patent. No extra-axial fluid collections. Ventricles are normal in size and shape. Brain: No midline shift. No intracranial masses or hemorrhage. Vega-white matter interface is normal. Skull and face: Postsurgical changes are again evident related to a posterior suboccipital decompression. Postoperative changes are similar to the previous exam. No recurrent Chiari malformation is appreciated. Calvarium and visualized facial bones are intact, without suspicious lesions. Sinuses: Visualized sinuses and mastoids are clear. IMPRESSION: Stable head CT. No acute intracranial hemorrhage. Note: The preliminary report provided by [facility] [facility] is concordant with the final report. Dictated by: Dominick Goodrich M.D. on 10/24/2019 at 8:00 Approved by: Dominick Goodrich M.D. on 10/24/2019 at 8:02
--- NOTE | 2019-10-24 02:29 | DI.CT.S_ITS ---
PROCEDURE: CT SOFT TISSUE NECK W CON INDICATIONS: severe pain, redness, overlying surgical scar, fever TECHNIQUE: After the administration of intravenous contrast, 3.0 mm axial sections acquired from the sella to the aortic arch. Additional oblique axial 3.0 mm sections acquired through the pharynx. 3 mm thick coronal and sagittal reformats were generated. For radiation dose reduction, the following was used: automated exposure control. COMPARISON: None. FINDINGS: Image quality: Diagnostic. Lymph nodes: No enlarged lymph nodes seen throughout the neck. Vessels: Visualized vasculature appears patent. Neck spaces: The oropharynx, nasopharynx, and pharynx demonstrate no mucosal lesions. The vocal cords, false vocal cords, pyriform sinuses, epiglottis, vallecula, and tongue base all appear normal. Extramucosal spaces appear unremarkable. Glands: The parotid and submandibular glands appear normal. Thyroid gland is not enlarged or adequately characterized. Miscellaneous: Visualized brain and orbits appear normal. Lung apices appear clear. Superficial soft tissues appear normal. Bones: No suspicious bony lesions. Visualized sinuses and mastoids appear unremarkable. Postoperative changes are present related to a a suboccipital decompression, compatible with the patient's history of previous Chiari malformation decompression. Incidental note is made of multiple small posterior disc bulges within the upper and lower cervical spine, not adequately characterized. IMPRESSION: 1. Postoperative changes related to a occipital decompression. 2. Small cervical disc bulges. The need for better characterization utilizing MRI may be determined clinically. Note: The preliminary report provided by [employer] is concordant with the final report. Dictated by: Dominick Goodrich M.D. on 10/24/2019 at 7:55 Approved by: Dominick Goodrich M.D. on 10/24/2019 at 7:58
--- NOTE | 2019-10-24 02:29 | ED_ITS ---
HPI - Headache General Chief Complaint: Headache Stated Complaint: n/v skin hurts head is pounding Time Seen by Provider: 10/24/19 02:20 Source: patient Mode of arrival: Ambulatory Limitations: no limitations History of Present Illness HPI Narrative: 29-year-old female former smoker with history of kidney stones and Arnold-Chiari malformation status post surgical repair presents with a chief complaint gradually worsening headache over the past day or 2 with nausea, fever as high as 100.2 and burning and tingling at the base of her neck running down into her mid upper spine. She states that every time she stands her pain becomes excruciating and she nearly passes. She recently had a tooth removed and was seen here about a week ago for a kidney stone but is otherwise been in her normal state of health. She states that standing up and bright lights make her headache worse. Though she has this burning sensation in her neck she denies much in the way of painful range of motion MD Complaint: headache Onset (ago): hour(s) Onset description: gradual Location: occipital Severity: severe Severity scale (1-10): 10 Quality: aching, throbbing and squeezing Relieving factors: nothing Exacerbating factors: sitting/standing and light Context: occurred at rest Associated symptoms: nausea and neck stiffness Related Data Home Medications Medication Instructions Recorded Confirmed buprenorphine-naloxone [Suboxone] 2 ea SUBLINGUAL QAM 06/02/18 10/24/19 mirtazapine 15 mg PO BEDTIME 10/24/19 10/24/19 Allergies Allergy/AdvReac Type Severity Reaction Status Date / Time ciprofloxacin [From Cipro] Allergy Severe Anaphylaxis Verified 09/26/19 14:06 sulfamethoxazole Allergy Severe Hives Verified 09/26/19 14:06 [From Septra] trimethoprim [From Septra] Allergy Severe Hives Verified 09/26/19 14:06 nitrofurantoin Allergy Intermediate Vomiting Verified 09/26/19 14:06 [From Macrobid] fentanyl AdvReac Severe Agitated Verified 09/26/19 14:06 morphine AdvReac Severe Agitated Verified 09/26/19 14:06 acetaminophen [From Vicodin] AdvReac Intermediate Nausea Verified 09/26/19 14:06 hydrocodone [From Vicodin] AdvReac Intermediate Nausea Verified 09/26/19 14:06 Review of Systems Constitutional Constitutional: Denies chills, Denies fatigue, Reports fever(s), Denies frequent falls, Reports headache(s), Denies lethargy and Denies weakness Eyes Eyes: Denies change in vision, Denies eye discharge, Denies irritation and Denies loss of vision ENT Ears, Nose, Mouth, and Throat: Denies change in voice, Denies dizziness, Reports headache(s), Denies neck pain, Denies sore throat and Denies throat swelling Cardiovascular Cardiovascular: Denies chest pain, Denies irregular heart rhythm, Denies lightheadedness, Denies palpitations, Denies dyspnea, Denies dyspnea on exertion and Denies orthopnea Respiratory Respiratory: Denies cough, Denies dyspnea, Denies dyspnea on exertion and Denies wheezing Gastrointestinal Gastrointestinal: Denies abdominal pain, Denies change in bowel habits, Denies diarrhea, Denies nausea and Denies vomiting Musculoskeletal Musculoskeletal: Denies neck pain and Denies numbness Integumentary/Breasts Skin/Breast: Denies pruritus, Denies erythema, Denies rash and Denies wounds Neurologic Neurologic: Denies behavioral changes, Denies confusion, Denies dizziness, Denies frequent falls, Reports headache(s), Denies loss of vision, Denies numbness and Denies weakness Psychiatric Psychiatric: Denies anxiety, Denies behavioral changes, Denies confusion, Denies depression, Denies homicidal ideation and Denies suicidal ideation Endocrine Endocrine: Denies fatigue, Denies flushing and Denies palpitations Hematologic/Lymphatic Hematologic/Lymphatic: Denies easy bruising Allergic/Immunologic Allergic/Immunologic: Denies urticaria, Denies throat swelling and Denies wheezing Patient History Medical History (Updated 10/24/19 @ 17:37 by Maya Meek DO) Arnold-Chiari malformation (Acute) Colon polyp (Acute) Insomnia (Acute) Nephrolithiasis (Acute) Opiate dependence (Acute) Surgical History (Updated 10/24/19 @ 17:37 by Maya Meek DO) H/O brain surgery (Acute) History of appendectomy (Acute) History of carpal tunnel surgery of right wrist (Acute) Hx of colonoscopy (Acute) Family History (Updated 10/24/19 @ 17:37 by Maya Meek DO) Mother Alcoholic cirrhosis Father Hepatitis C Family/Other Colon cancer Social History household members: other Smoking Status: Former smoker substance use type: painkillers Smoking Status: Former smoker alcohol intake frequency: 0-2 drinks per day Substance Use Type: prescription drug Exam Narrative Exam Narrative: GENERAL: [29] year old patient appears stated age. Well- nourished, well-developed patient, in mild distress. Obviously uncomfortable. HEAD: Atraumatic. Normocephalic. EYES: Pupils equal round and reactive. Extraocular motions intact. No scleral icterus. No injection or drainage. ENT: Nose without bleeding, purulent drainage. Throat without erythema, tonsillar hypertrophy or exudate. Airway patent. NECK: Trachea midline. Posterior midline incision tingles and is warm with some erythema. Paraspinal musclature tender to palpation. Negative Kernig's/Brudzinski's CARDIOVASCULAR: Regular rate and rhythm without murmurs, gallops, or rubs. RESPIRATORY: Clear to auscultation. Breath sounds equal bilaterally. No wheezes, rales, or rhonchi. GASTROINTESTINAL: Abdomen soft, non-tender, nondistended. EXTREMITIES: No edema or joint tenderness. BACK: Nontender without deformity or crepitance. No flank tenderness. NEURO: AOx3. SKIN: No rash or erythema of visible areas Initial Vital Signs Initial Vital Signs: Vital Signs Temperature 100.1 F H 10/24/19 02:27 Pulse Rate 109 H 10/24/19 02:27 Respiratory Rate 20 10/24/19 02:27 Blood Pressure 144/86 H 10/24/19 02:27 Pulse Oximetry 100 10/24/19 02:27 Procedures Lumbar Puncture Time Out Performed: Yes Patient Position: upright Local Anesthetic: lidocaine 1% Amount of anesthesia used (mL): 4 Spinal Needle Gauge: 22G Interspace Used: L4-L5 Fluid Initially Obtained: clear Complications: none Course Orders Ordered: Acetaminophen (Tylenol) 650 mg PO Q6HR PRN PRN Reason: Fever/Mild Pain (1-3) Last Admin: 10/24/19 23:48 Dose: 650 mg Documented by: Admin: 10/24/19 16:49 Dose: 650 mg Documented by: MATT Al Hydrox/Mg Hydrox/Simethicone (Maalox Plus) 30 ml PO Q6HR PRN PRN Reason: Dyspepsia Bisacodyl (Dulcolax) 10 mg DE DAILY PRN PRN Reason: Constipation Calcium Carbonate (Tums) 1,000 mg PO Q4HR PRN PRN Reason: Dyspepsia Last Admin: 10/24/19 23:51 Dose: 1,000 mg Documented by: CATHERINE Heparin Sodium (Porcine) (Heparin) 5,000 unit SUBCUT BID [facility] Last Admin: 10/24/19 20:34 Dose: Not Given Documented by: Admin: 10/24/19 08:57 Dose: Not Given Documented by: SHAHID Hydromorphone HCl (Dilaudid) 1 mg IV Q6HR PRN PRN Reason: Break through pain only Last Admin: 10/25/19 02:02 Dose: 1 mg Documented by: Admin: 10/24/19 19:44 Dose: 1 mg Documented by: MATT Sodium Chloride (Normal Saline 0.9%) 1,000 mls @ 100 mls/hr IV CONT [facility] Last Infusion: 10/24/19 18:01 Dose: 0 mls/hr Documented by: Admin: 10/24/19 08:32 Dose: 100 mls/hr Documented by: SHAHID Acyclovir 920 mg/ Dextrose 100 mls @ 100 mls/hr IV Q8H [facility] Last Infusion: 10/25/19 00:52 Dose: 0 mls/hr Documented by: Admin: 10/24/19 20:34 Dose: 100 mls/hr Documented by: MATT Ketorolac Tromethamine (Toradol) 30 mg IV Q6HR PRN PRN Reason: Pain, Severe (7-10) Stop: 10/29/19 07:25 Last Admin: 10/24/19 22:04 Dose: 30 mg Documented by: Admin: 10/24/19 16:01 Dose: 30 mg Documented by: Admin: 10/24/19 10:16 Dose: 30 mg Documented by: SHAHID Magnesium Hydroxide (Milk Of Magnesia) 30 ml PO DAILY PRN PRN Reason: Constipation Mirtazapine (Remeron) 15 mg PO BEDTIME [facility] Last Admin: 10/24/19 20:33 Dose: 15 mg Documented by: MATT Naloxone HCl (Narcan) 0.2 mg IV Q2MIN PRN PRN Reason: Opiate Reversal Ondansetron HCl (Zofran) 4 mg IV Q4HR PRN PRN Reason: Nausea And Vomiting Last Admin: 10/24/19 19:09 Dose: 4 mg Documented by: Admin: 10/24/19 02:40 Dose: 4 mg Documented by: NÉSTOR Oxycodone HCl (Percolone) 5 mg PO Q4H PRN PRN Reason: Pain, Moderate (4-6) Last Admin: 10/24/19 23:48 Dose: 5 mg Documented by: Admin: 10/24/19 16:49 Dose: 5 mg Documented by: MATT Discontinued Medications Acyclovir (Zovirax) 800 mg PO TID [facility] Last Admin: 10/24/19 14:21 Dose: 800 mg Documented by: SETH Buprenorphine/Naloxone (Suboxone 8/2 Mg Sl) 2 tab SL 0600 [facility] Last Admin: 10/24/19 12:27 Dose: Not Given Documented by: SETH Dexamethasone (Decadron) 10 mg IV NOW ONE Stop: 10/24/19 07:00 Last Admin: 10/24/19 07:13 Dose: 10 mg Documented by: NÉSTOR Hydromorphone HCl (Dilaudid) 1 mg IV NOW ONE Stop: 10/24/19 05:39 Last Admin: 10/24/19 05:46 Dose: 1 mg Documented by: NÉSTOR Hydromorphone HCl (Dilaudid) 1 mg IV Q4H PRN PRN Reason: severe headache (7-10) Hydromorphone HCl (Dilaudid) 1 mg IV Q4H PRN PRN Reason: Severe headache (7-10) Last Admin: 10/24/19 12:50 Dose: 1 mg Documented by: Admin: 10/24/19 08:55 Dose: 1 mg Documented by: SHAHID Hydromorphone HCl (Dilaudid) 1 mg IV Q6HR [facility] Last Admin: 10/24/19 21:03 Dose: Not Given Documented by: MATT Sodium Chloride (Normal Saline 0.9%) 1,000 mls @ 1,000 mls/hr IV BOLUS ONE Stop: 10/24/19 03:31 Last Infusion: 10/24/19 03:53 Dose: 0 mls/hr Documented by: Admin: 10/24/19 02:42 Dose: 1,000 mls/hr Documented by: NÉSTOR Acyclovir 840 mg/ Dextrose 100 mls @ 100 mls/hr IV NOW ONE Stop: 10/24/19 07:00 Last Infusion: 10/24/19 08:57 Dose: 0 mls/hr Documented by: Admin: 10/24/19 07:16 Dose: 100 mls/hr Documented by: NÉSTOR Ketorolac Tromethamine (Toradol) 15 mg IV NOW ONE Stop: 10/24/19 02:33 Last Admin: 10/24/19 02:43 Dose: 15 mg Documented by: NÉSTOR Melatonin (Melatonin) 6 mg PO NOW ONE Stop: 10/25/19 02:38 Last Admin: 10/25/19 02:49 Dose: 6 mg Documented by: CATHERINE Metoclopramide HCl (Reglan) 10 mg IV NOW ONE Stop: 10/24/19 05:15 Last Admin: 10/24/19 05:17 Dose: 10 mg Documented by: NÉSTOR Nf - Buprenorphine- Naloxone (Suboxone) 8mg-2mg 2 Films 2 each SL DAILY MARIAH Last Admin: 10/24/19 11:26 Dose: Not Given Documented by: MANJITTO Consultations Consultation #1: discussion with Dr. Guan (patient neurosurgeon), CT findings relayed. He has no concern about relation to surgeries. No contraindication to LP. Vital Signs Vital signs: Vital Signs - 8 hr 10/24/19 02:27 10/24/19 03:12 10/24/19 05:21 Temperature 100.1 F H Pulse Rate 109 H 88 80 Respiratory Rate 20 16 16 Blood Pressure [Left Arm] 144/86 H 140/80 120/66 Pulse Oximetry 100 100 99 10/24/19 06:48 Temperature Pulse Rate 84 Respiratory Rate 18 Blood Pressure [Left Arm] 120/66 Pulse Oximetry 98 MDM - Headache Lab Data Result diagrams: 10/24/19 02:40 10/24/19 02:40 Labs: Lab Results 10/24/19 10/24/19 10/24/19 Range/Units 02:40 02:40 02:40 WBC 8.1 (4.5-11.0) X10^3/uL RBC 4.06 (4.0-5.2) X10^6/uL Hgb 13.2 (12.0-16.0) g/dL Hct 38.3 (36-46) % MCV 94.2 (80-100) fL MCH 32.5 (26-34) PG MCHC 34.5 (30-36) % RDW 12.9 (11.6-14.8) % Plt Count 287 (150-400) X10^3/uL Neut % (Auto) 64.4 (50-75) % Lymph % (Auto) 24.5 L (25-40) % [place] % (Auto) 7.3 (3-14) % Eos % (Auto) 3.4 (2-4) % Baso % (Auto) 0.4 (0-2) % Neut # (Auto) 5200 (1610-7486) /uL Lymph # (Auto) 2000 (7088-7543) /uL [place] # (Auto) 600 (0-900) /uL Eos # (Auto) 300 (0-450) /uL Baso # (Auto) 0 (0-100) /uL ESR 11 (0-20) MM/HR Sodium 139 (137-145) mmol/L Potassium 4.2 (3.4-5.1) mmol/L Chloride 104 (98-107) mmol/L Carbon Dioxide 27 (22-32) mmol/L BUN 10 (7-17) mg/dL Creatinine 0.53 (0.52-1.04) mg/dL Estimated GFR > 60.0 (>60) mL/min BUN/Creatinine Ratio 18.9 (6-22) Glucose 105 H (70-100) mg/dL Lactate (0.7-2.1) mmol/L Calcium 9.6 (8.4-10.2) mg/dL Magnesium (1.6-2.3) mg/dL C-Reactive Protein < 0.5 (<1.0) mg/dL CSF Tube Number CSF Volume CSF Appearance (Clear) CSF Color (Colorless) CSF WBC (0-5) MONO/uL CSF RBC RBC /uL CSF Mononuclear WBCs CSF Polynuclear WBCs CSF Glucose (40-70) mg/dL CSF Total Protein (12-60) mg/dL CSF C.neoform/gat PCR (Not Detect) CSF CMV DNA (PCR) (Not Detect) CSF Enterovirus (PCR) (Not Detect) CSF E. coli (PCR) (Not Detect) CSF H. influenzae (PCR) (Not Detect) CSF HSV I (PCR) (Not Detect) CSF HSV II (PCR) (Not Detect) CSF HHV 6 (PCR) (Not Detect) CSF L.monocytogenes PCR (Not Detect) CSF N. meningitidis PCR (Not Detect) CSF Parechovirus (PCR) (Not Detect) CSF S. agalactiae (PCR) (Not Detect) CSF S. pneumoniae (PCR) (Not Detect) CSF VZV (PCR) (Not Detecte) 10/24/19 10/24/19 10/24/19 Range/Units 02:40 02:40 05:10 WBC (4.5-11.0) X10^3/uL RBC (4.0-5.2) X10^6/uL Hgb (12.0-16.0) g/dL Hct (36-46) % MCV (80-100) fL MCH (26-34) PG MCHC (30-36) % RDW (11.6-14.8) % Plt Count (150-400) X10^3/uL Neut % (Auto) (50-75) % Lymph % (Auto) (25-40) % [place] % (Auto) (3-14) % Eos % (Auto) (2-4) % Baso % (Auto) (0-2) % Neut # (Auto) (4195-2674) /uL Lymph # (Auto) (0623-8743) /uL [place] # (Auto) (0-900) /uL Eos # (Auto) (0-450) /uL Baso # (Auto) (0-100) /uL ESR (0-20) MM/HR Sodium (137-145) mmol/L Potassium (3.4-5.1) mmol/L Chloride (98-107) mmol/L Carbon Dioxide (22-32) mmol/L BUN (7-17) mg/dL Creatinine (0.52-1.04) mg/dL Estimated GFR (>60) mL/min BUN/Creatinine Ratio (6-22) Glucose (70-100) mg/dL Lactate 1.7 (0.7-2.1) mmol/L Calcium (8.4-10.2) mg/dL Magnesium 2.0 (1.6-2.3) mg/dL C-Reactive Protein (<1.0) mg/dL CSF Tube Number 2 CSF Volume 2.0 ml CSF Appearance Clear (Clear) CSF Color Colorless (Colorless) CSF WBC 2 (0-5) MONO/uL CSF RBC 232 RBC /uL CSF Mononuclear WBCs Not Reportable CSF Polynuclear WBCs Not Reportable CSF Glucose 48 (40-70) mg/dL CSF Total Protein 151 H (12-60) mg/dL CSF C.neoform/gat PCR (Not Detect) CSF CMV DNA (PCR) (Not Detect) CSF Enterovirus (PCR) (Not Detect) CSF E. coli (PCR) (Not Detect) CSF H. influenzae (PCR) (Not Detect) CSF HSV I (PCR) (Not Detect) CSF HSV II (PCR) (Not Detect) CSF HHV 6 (PCR) (Not Detect) CSF L.monocytogenes PCR (Not Detect) CSF N. meningitidis PCR (Not Detect) CSF Parechovirus (PCR) (Not Detect) CSF S. agalactiae (PCR) (Not Detect) CSF S. pneumoniae (PCR) (Not Detect) CSF VZV (PCR) (Not Detecte) 10/24/19 Range/Units 05:10 WBC (4.5-11.0) X10^3/uL RBC (4.0-5.2) X10^6/uL Hgb (12.0-16.0) g/dL Hct (36-46) % MCV (80-100) fL MCH (26-34) PG MCHC (30-36) % RDW (11.6-14.8) % Plt Count (150-400) X10^3/uL Neut % (Auto) (50-75) % Lymph % (Auto) (25-40) % [place] % (Auto) (3-14) % Eos % (Auto) (2-4) % Baso % (Auto) (0-2) % Neut # (Auto) (6220-4542) /uL Lymph # (Auto) (5104-0897) /uL [place] # (Auto) (0-900) /uL Eos # (Auto) (0-450) /uL Baso # (Auto) (0-100) /uL ESR (0-20) MM/HR Sodium (137-145) mmol/L Potassium (3.4-5.1) mmol/L Chloride (98-107) mmol/L Carbon Dioxide (22-32) mmol/L BUN (7-17) mg/dL Creatinine (0.52-1.04) mg/dL Estimated GFR (>60) mL/min BUN/Creatinine Ratio (6-22) Glucose (70-100) mg/dL Lactate (0.7-2.1) mmol/L Calcium (8.4-10.2) mg/dL Magnesium (1.6-2.3) mg/dL C-Reactive Protein (<1.0) mg/dL CSF Tube Number CSF Volume CSF Appearance (Clear) CSF Color (Colorless) CSF WBC (0-5) MONO/uL CSF RBC RBC /uL CSF Mononuclear WBCs CSF Polynuclear WBCs CSF Glucose (40-70) mg/dL CSF Total Protein (12-60) mg/dL CSF C.neoform/gat PCR Not detected (Not Detect) CSF CMV DNA (PCR) Not detected (Not Detect) CSF Enterovirus (PCR) Not detected (Not Detect) CSF E. coli (PCR) Not detected (Not Detect) CSF H. influenzae (PCR) Not detected (Not Detect) CSF HSV I (PCR) Not detected (Not Detect) CSF HSV II (PCR) Detected H (Not Detect) CSF HHV 6 (PCR) Not detected (Not Detect) CSF L.monocytogenes PCR Not detected (Not Detect) CSF N. meningitidis PCR Not detected (Not Detect) CSF Parechovirus (PCR) Not detected (Not Detect) CSF S. agalactiae (PCR) Not detected (Not Detect) CSF S. 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
[2019-10-24] MEDS: ONDANSETRON 4 MG/2 ML INJ IV ×2 (02:40→19:09)
[2019-10-24] MEDS: SODIUM CHLORIDE 0.9% 1,000 ML 1000 ML IV (02:42)
[2019-10-24] MEDS: KETOROLAC 60 MG/2 ML VIAL 15 MG IV (02:43)
[2019-10-24 02:53] LABS: Add Manual Diff / Slide Review NO; Basophils Absolute Auto 0 /uL (0-100); Basophils Percent Auto 0.4 % (0-2); Eosinophils Absolute Auto 300 /uL (0-450); Eosinophils Percent Auto 3.4 % (2-4); Hematocrit 38.3 % (36-46); Hemoglobin 13.2 g/dL (12.0-16.0); Lymphocytes Absolute Auto 2000 /uL (1100-4500); Lymphocytes Percent Auto 24.5 % (25-40); Mean Corpuscular HGB Conc 34.5 % (30-36); Mean Corpuscular Hemoglobin 32.5 PG (26-34); Mean Corpuscular Volume 94.2 fL (80-100); Monocytes Absolute Auto 600 /uL (0-900); Monocytes Percent Auto 7.3 % (3-14); Neutrophils Absolute Auto 5200 /uL (1500-7000); Neutrophils Percent Auto 64.4 % (50-75); Platelet Count 287 X10^3/uL (150-400); Red Blood Cell Count 4.06 X10^6/uL (4.0-5.2); Red Cell Distribution Width 12.9 % (11.6-14.8); White Blood Cell Count 8.1 X10^3/uL (4.5-11.0)
[2019-10-24 03:00] LABS: Lactate (Lactic Acid) 1.7 mmol/L (0.7-2.1)
[2019-10-24 03:03] LABS: BUN Creatinine Ratio 18.9 (6-22); Blood Urea Nitrogen 10 mg/dL (7-17); C-Reactive Protein Quant < 0.5 mg/dL (<1.0); Calcium 9.6 mg/dL (8.4-10.2); Carbon Dioxide 27 mmol/L (22-32); Chloride 104 mmol/L (98-107); Estimated Glomerular Filt Rate > 60.0 mL/min (>60); Glucose 105 mg/dL (70-100); HEMOLYSIS < 15 (0-50); Potassium 4.2 mmol/L (3.4-5.1); Sodium 139 mmol/L (137-145)
[2019-10-24 03:12] LABS: Erythrocyte Sedimentation Rate 11 MM/HR (0-20)
[2019-10-24] MEDS: LIDOCAINE 2% INJ MDV 20 ML (05:14)
[2019-10-24] MEDS: METOCLOPRAMIDE 10 MG/2 ML INJ IV (05:17)
[2019-10-24 05:29] LABS: Glucose CSF 48 mg/dL (40-70); Total Protein CSF 151 mg/dL (12-60)
[2019-10-24] MEDS: HYDROMORPHONE 1 MG INJ IV ×4 (05:46→19:44)
[2019-10-24 06:01] LABS: CSF Tube Number 2; CSF Tube Volume 2.0 mL
[2019-10-24 06:02] LABS: Appearance CSF Clear (Clear); Color CSF Colorless (Colorless); Red Blood Cell CSF 232 RBC /uL; White Blood Cell CSF 2 MONO/uL (0-5)
[2019-10-24 06:55] LABS: Cryptococcus neoformans/gattii Not Detected (Not Detect); Enterovirus Not Detected (Not Detect); Escherichia coli K1 Not Detected (Not Detect); Haemophilus influenzae Not Detected (Not Detect); Herpes simplex virus 1 Not Detected (Not Detect); Human herpesvirus 6 Not Detected (Not Detect); Neisseria meningitidis Not Detected (Not Detect); Streptococcus agalactiae Not Detected (Not Detect); Streptococcus pneumoniae Not Detected (Not Detect)
[2019-10-24 06:56] LABS: Herpes simplex virus 2 Detected (Not Detect); Human parechovirus Not Detected (Not Detect); Listeria monocytogenes Not Detected (Not Detect); Varicella Zoster Virus Not Detected (Not Detecte)
[2019-10-24] MEDS: DEXAMETHASONE 10 MG/ML VIAL IV (07:13)
[2019-10-24] MEDS: DEXTROSE 5% IV ×2 (07:16→20:34)
[2019-10-24] MEDS: WATER IV ×2 (07:16→20:34)
[2019-10-24] MEDS: ACYCLOVIR IV ×2 (07:16→20:34)
[2019-10-24] MEDS: SODIUM CHLORIDE 0.9% 1,000 ML 100 ML IV (08:32)
--- NOTE | 2019-10-24 08:45 | P.HP_ITS ---
History of Present Illness History of Present Illness Date Patient Seen: 10/24/19 Chief complaint: n/v skin hurts head is pounding Narrative: Rula Betancourt is a 29-year-old female with a past medical history significant for Arnold Chiari malformation status post surgical repair x2 who developed opiate dependence after surgery and is now on Suboxone, insomnia, colon polyps and nephrolithiasis who presented to the ED for severe thunderclap headache, fever and nausea. The patient reports that 2 days ago she was at the park and returned home and began to have a bruised feeling on her back between her shoulder blades. She was certain that she must have gotten bit by a spider. The next day she reports she awoke with the worst headache she has ever had in her life. She reports that her headache was worse than her neurosurgery. She developed a fever of 100.5 ?F, could not walk due to severe headache and nausea prompting her to come to the ED. She reports that her headache radiates down her spine to the mid subscapular area. She describes the pain as a pinching and burning sensation. She also endorses neck stiffness and diaphoresis from fever. She has no other complaints and denies chest pain, shortness of breath, abdominal pain, vomiting, dysuria, diarrhea constipation. The ED provider, Dr. Jolley, spoke with the patient's previous neurologist Dr. Guan at [facility] who agreed that an LP should be performed. The lumbar puncture was performed and demonstrated HSV 2 meningitis and she received acyclovir 10 mg/kg. The patient now complains of pain at LP site that radiates down right leg and describes it as same sensation as meningeal headache which is pinching and burning in sensation. The patient is admitted for observation of aseptic HSV 2 meningitis and symptom control. Patient History Medical History (Updated 10/24/19 @ 17:37 by Maya Meek DO) Arnold-Chiari malformation (Acute) Colon polyp (Acute) Insomnia (Acute) Nephrolithiasis (Acute) Opiate dependence (Acute) Surgical History (Updated 10/24/19 @ 17:37 by Maya Meek DO) H/O brain surgery (Acute) History of appendectomy (Acute) History of carpal tunnel surgery of right wrist (Acute) Hx of colonoscopy (Acute) Family & Social History Family History (Updated 10/24/19 @ 17:37 by Maya Meek DO) Mother Alcoholic cirrhosis Father Hepatitis C Family/Other Colon cancer Safety & Behavioral: Feels Safe in Current Yes Environment Tobacco & Substance use: Smoking Status Former smoker, 2 packs per day x 20 years alcohol intake frequency None Substance Use Type prescription drug The patient has a fiancee of 3 years. She has an 8-year-old son. She works at a [employer]. Meds Home Medications and Allergies Home Medications Medication Instructions Recorded Confirmed Type buprenorphine-naloxone [Suboxone] 2 ea SUBLINGUAL QAM 06/02/18 10/24/19 History mirtazapine 15 mg PO BEDTIME 10/24/19 10/24/19 History Allergies Allergy/AdvReac Type Severity Reaction Status Date / Time ciprofloxacin [From Cipro] Allergy Severe Anaphylaxis Verified 09/26/19 14:06 sulfamethoxazole Allergy Severe Hives Verified 09/26/19 14:06 [From Septra] trimethoprim [From Septra] Allergy Severe Hives Verified 09/26/19 14:06 nitrofurantoin Allergy Intermediate Vomiting Verified 09/26/19 14:06 [From Macrobid] fentanyl AdvReac Severe Agitated Verified 09/26/19 14:06 morphine AdvReac Severe Agitated Verified 09/26/19 14:06 acetaminophen [From Vicodin] AdvReac Intermediate Nausea Verified 09/26/19 14:06 hydrocodone [From Vicodin] AdvReac Intermediate Nausea Verified 09/26/19 14:06 Review of Systems Review of Systems Narrative: A 10 system comprehensive review of systems was conducted with the patient and found to be negative except as above in the History of Present Illness. Exam Vital Signs (past 8 hours): - 10/24/19 02:27 10/24/19 03:12 10/24/19 05:21 Temperature 100.1 F H Pulse Rate 109 H 88 80 Respiratory Rate 20 16 16 Blood Pressure Blood Pressure [Left Arm] 144/86 H 140/80 120/66 Pulse Oximetry 100 100 99 10/24/19 06:48 10/24/19 07:30 10/24/19 08:15 Temperature 98.7 F Pulse Rate 84 93 H 95 H Respiratory Rate 18 17 17 Blood Pressure 147/76 H Blood Pressure [Left Arm] 120/66 128/63 Pulse Oximetry 98 98 97 10/24/19 08:21 Temperature Pulse Rate Respiratory Rate Blood Pressure Blood Pressure [Left Arm] Pulse Oximetry 97 Oxygen Delivery Method Room Air Oxygen Flow Rate 0 Narrative Exam Narrative: General: Young female sitting in bed and in no acute distress, appears acutely ill, mildly diaphoretic, well-developed, well-nourished, appropriately inter active. HEENT: Normocephalic, atraumatic. External ears without defect. Pupils equal, round, and reactive to light. Anicteric sclerae, moist conjunctivae, and no lid lag. Oropharynx free of erythema and cobble stoning with moist mucosa. Neck: Supple with full range of motion. No lymphadenopathy or thyromegaly. Decreased range of motion with flexion of head 20?. Cardiovascular: Regular rate and rhythm without murmurs, rubs, or gallops appreciated. Pulmonary: Clear to auscultation bilaterally without crackles, wheezes, or rhonchi. Normal respiratory effort with no use of accessory muscles. Abdomen: Soft, bowel sounds present, nontender, nondistended. No hepatosplenomegaly or masses appreciated. Extremities: No clubbing, cyanosis, or edema. Skin: Normal temperature, turgor, and texture; no rash, ulcers, or subcutaneous nodules appreciated. Neurological: Cranial nerves grossly intact. Meningitis with neck stiffness. Psychiatric: Normal mood and affect. Alert and oriented to person, place, and time. Objective Labs Result Diagrams: 10/24/19 02:40 10/24/19 02:40 Labs: Laboratory Results - last 24 hr 10/24/19 10/24/19 10/24/19 02:40 02:40 02:40 WBC 8.1 RBC 4.06 Hgb 13.2 Hct 38.3 MCV 94.2 MCH 32.5 MCHC 34.5 RDW 12.9 Plt Count 287 Neut % (Auto) 64.4 Lymph % (Auto) 24.5 L [place] % (Auto) 7.3 Eos % (Auto) 3.4 Baso % (Auto) 0.4 Neut # (Auto) 5200 Lymph # (Auto) 2000 [place] # (Auto) 600 Eos # (Auto) 300 Baso # (Auto) 0 ESR 11 Sodium 139 Potassium 4.2 Chloride 104 Carbon Dioxide 27 BUN 10 Creatinine 0.53 Estimated GFR > 60.0 BUN/Creatinine Ratio 18.9 Glucose 105 H Lactate Calcium 9.6 Magnesium C-Reactive Protein < 0.5 CSF Tube Number CSF Volume CSF Appearance CSF Color CSF WBC CSF RBC CSF Mononuclear WBCs CSF Polynuclear WBCs CSF Glucose CSF Total Protein CSF C.neoform/gat PCR CSF CMV DNA (PCR) CSF Enterovirus (PCR) CSF E. coli (PCR) CSF H. influenzae (PCR) CSF HSV I (PCR) CSF HSV II (PCR) CSF HHV 6 (PCR) CSF L.monocytogenes PCR CSF N. meningitidis PCR CSF Parechovirus (PCR) CSF S. agalactiae (PCR) CSF S. pneumoniae (PCR) CSF VZV (PCR) 10/24/19 10/24/19 10/24/19 02:40 02:40 05:10 WBC RBC Hgb Hct MCV MCH MCHC RDW Plt Count Neut % (Auto) Lymph % (Auto) [place] % (Auto) Eos % (Auto) Baso % (Auto) Neut # (Auto) Lymph # (Auto) [place] # (Auto) Eos # (Auto) Baso # (Auto) ESR Sodium Potassium Chloride Carbon Dioxide BUN Creatinine Estimated GFR BUN/Creatinine Ratio Glucose Lactate 1.7 Calcium Magnesium 2.0 C-Reactive Protein CSF Tube Number 2 CSF Volume 2.0 ml CSF Appearance Clear CSF Color Colorless CSF WBC 2 CSF RBC 232 CSF Mononuclear WBCs Not Reportable CSF Polynuclear WBCs Not Reportable CSF Glucose 48 CSF Total Protein 151 H CSF C.neoform/gat PCR CSF CMV DNA (PCR) CSF Enterovirus (PCR) CSF E. coli (PCR) CSF H. influenzae (PCR) CSF HSV I (PCR) CSF HSV II (PCR) CSF HHV 6 (PCR) CSF L.monocytogenes PCR CSF N. meningitidis PCR CSF Parechovirus (PCR) CSF S. agalactiae (PCR) CSF S. pneumoniae (PCR) CSF VZV (PCR) 10/24/19 05:10 WBC RBC Hgb Hct MCV MCH MCHC RDW Plt Count Neut % (Auto) Lymph % (Auto) [place] % (Auto) Eos % (Auto) Baso % (Auto) Neut # (Auto) Lymph # (Auto) [place]kin # (Auto) Eos # (Auto) Baso # (Auto) ESR Sodium Potassium Chloride Carbon Dioxide BUN Creatinine Estimated GFR BUN/Creatinine Ratio Glucose Lactate Calcium Magnesium C-Reactive Protein CSF Tube Number CSF Volume CSF Appearance CSF Color CSF WBC CSF RBC CSF Mononuclear WBCs CSF Polynuclear WBCs CSF Glucose CSF Total Protein CSF C.neoform/gat PCR Not detected CSF CMV DNA (PCR) Not detected CSF Enterovirus (PCR) Not detected CSF E. coli (PCR) Not detected CSF H. influenzae (PCR) Not detected CSF HSV I (PCR) Not detected CSF HSV II (PCR) Detected H CSF HHV 6 (PCR) Not detected CSF L.monocytogenes PCR Not detected CSF N. meningitidis PCR Not detected CSF Parechovirus (PCR) Not detected CSF S. agalactiae (PCR) Not detected CSF S. 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 1. Acute aseptic HSV 2 meningitis, present on admission. Active. -Patient presented with severe thunderclap headache radiating down spine, fever, nausea, and stiff neck. -Received acyclovir 840 mg x1 in ED based on reported body weight. Continue acyclovir weight based dosing at 10 mg/kg for which patient is body weight is 92 kg, acyclovir 920 mg IV 3 times daily. -Continue pain control with: Acetaminophen 650 mg every 6 hours as needed for mild pain or fever, Toradol 30 mg every 6 hours as needed for mild pain, oxycodone 5 mg every 4 hours as needed for moderate to severe pain and Dilaudid 1 mg IV every 6 hours ONLY for severe breakthrough pain. -Continue Zofran 4 mg IV every 8 hours as needed for nausea. -Continue IV fluid hydration with normal saline at 100 mL/hr. 2. Opiate dependence on Suboxone, chronic, present on admission. Stable. -Continue pain control as above. Once patient is discharged will need to restart Suboxone 12-24 hours after last dose of narcotic. 3. Insomnia, chronic, present on admission. Stable. -Continue home mirtazapine 50 mg daily at bedtime. Patient is admitted under observation status with expected length of stay less than 2 midnights due to severity of presenting symptoms, risk of adverse event, and complexity of treatment plan.
[2019-10-24] MEDS: KETOROLAC 30 MG/ML VIAL IV ×3 (10:16→22:04)
--- NOTE | 2019-10-24 10:29 | PC.NURSE ---
Admit Note Pt arrived to room 224 at 0805 from ER, able to walk self from stretcher to bed. Oriented to room and to call light/bed/tv controls, call light within reach. Belongings in room closet and at bedside, declines to lock up valuables in safe. Cell phone at bedside, glasses present. Reports pain 10/10 on arrival to head, Dilaudid administered per MD order and lights turned low/door shut.
--- NOTE | 2019-10-24 12:40 | CM.DANOTE ---
DCP: Case received, EMR reviewed. Have not yet met with patient due to her pain and anxiety, and her attempting to get rest. Was able to obtain information from team rounds regarding her medical history, as well as the chart. DCP assessment completed with information currently available. Patient is a 29 year old female who admitted early this morning to the care of the hospitalist team. PCP: Dr. Mckeon. Payer: Confirmed: [employer]. Patient came to the hospital via family vehicle secondary to severe headaches. Patient holds diagnosis of viral mengititis, as well as history of endometriosis with various lesions. She will be following up with Dr. Mercado, OB, at discharge. According to notes, patient is independent at baseline, has a friend named Myles, it is uncertain if she resides with him. She resides in [place] and is employed at [employer]. She has been sensitive to light, and has been attempting to rest. She is independent with her ambulations. P: DCP to continue to follow for any needs. She should be able to go home when she is medically stable. Cony Riley RN/Quality Control Clerk
[2019-10-24] MEDS: ACYCLOVIR 400 MG TABLET 800 MG PO (14:21)
--- NOTE | 2019-10-24 14:49 | PC.NURSE ---
medicated with both iv dilaudid and toradol which are each effective in short term but headache continues to reoccur- too soon repeat of rx, offered ice pack in place and will continue to check on pt- other vitals stable
[2019-10-24] MEDS: OXYCODONE IR 5 MG TABLET PO ×2 (16:49→23:48)
[2019-10-24] MEDS: ACETAMINOPHEN 325 MG TABLET 650 MG PO ×2 (16:49→23:48)
--- NOTE | 2019-10-24 18:38 | PC.NURSE ---
Assumed care of pt at 1530, VSS, cardiac rhythm is Sinus tachycardia with HR 103, pt states that she has a Headache 8/10, administered Ketorlac for pain. Pt states 30 minutes later that the pain is still 8/10 and asked that I call Dr. Meek for additional pain medication (as she is not due for anything else). New orders place by Dr. Meek for Tylenol and Oxycodone Q 4hrs (to provide longer lasting relief) and 1 mg Dilaudid Q 6hrs for severe break through pain only. There was also some confusion of pt actual weight upon admission, weight on admission was noted to be 83.915 and actual weight was measured to be 92.1 (by bedscale and chair scale). The concern was for the Acyclovir dosing to be correct based on weight. Proper weight was measured and documented, pharmacy was notified of the corrected weight. Pt is currently resting in bed, watching tv with room darken for photophobia. Bed low and locked, call light within reach, will continue to monitor.
[2019-10-24] MEDS: MIRTAZAPINE 15 MG TABLET PO (20:33)
[2019-10-24] MEDS: CALCIUM CARBONATE 500 MG TAB 1000 MG PO (23:51)
[2019-10-25] MEDS: HYDROMORPHONE 1 MG INJ IV ×5 (02:02→21:38)
[2019-10-25] MEDS: MELATONIN 3 MG TABLET 6 MG PO (02:49)
[2019-10-25 04:41] VITALS: BP 104/70; PULSE 75; RESP 18; TEMP 37.2; O2SAT 97
[2019-10-25] MEDS: OXYCODONE IR 5 MG TABLET PO (04:53)
[2019-10-25] MEDS: KETOROLAC 30 MG/ML VIAL IV ×3 (04:54→20:15)
[2019-10-25] MEDS: ACYCLOVIR IV ×3 (04:54→21:37)
[2019-10-25] MEDS: DEXTROSE 5% IV ×3 (04:54→21:37)
[2019-10-25] MEDS: WATER IV ×3 (04:54→21:37)
[2019-10-25] MEDS: CALCIUM CARBONATE 500 MG TAB 1000 MG PO (04:57)
[2019-10-25] MEDS: ACETAMINOPHEN 325 MG TABLET 650 MG PO ×2 (05:55→16:26)
[2019-10-25] MEDS: MAGNESIUM HYDROXIDE 30 ML UDC PO (05:56)
[2019-10-25 08:00] VITALS: BP 126/75; PULSE 83; RESP 16; TEMP 37.3; O2SAT 96
[2019-10-25] MEDS: CYCLOBENZAPRINE 10 MG TABLET PO ×2 (08:15→16:26)
[2019-10-25] MEDS: OXYCODONE IR 5 MG TABLET 7.5 MG PO ×3 (09:07→18:47)
--- NOTE | 2019-10-25 10:47 | P.PN_ITS ---
Subjective Subjective Date Patient Seen: 10/25/19 Interval history: The patient is resting in bed and appears comfortable. She reports she had a terrible night and was only able to sleep for approximately 2 hours. She reports that her headache was back to a +10/10 in severity and radiating down the right side of neck. The patient works as a lead plan and will order lead level to assure that this is not contributing to neurological sequelae. She reports that the cyclobenzaprine helped tremendously. She also took a shower which she felt helped. She has ice in place on her neck and reports that this is soothing. Her nuchal rigidity has improved likely due to muscle relaxant. She has no other complaints and denies vision changes including double vision and blurry vision, chest pain, shortness of breath, abdominal pain, nausea, vomiting, fever, chills, dysuria, diarrhea or constipation. She denies vaginal lesions and vaginal exam performed today with nurse light air defense artillery crewmember was normal. Her low back pain radiating down right leg from LP has resolved. She is voiding without difficulty. She is up ambulating independently. Exam Vital Signs (past 8 hours): - 10/25/19 04:41 10/25/19 08:00 Temperature 98.9 F 99.1 F Pulse Rate 75 83 Respiratory Rate 18 16 Blood Pressure 104/70 126/75 Pulse Oximetry 97 96 Oxygen Delivery Method Room Air Oxygen Flow Rate 0 Narrative Exam Narrative: General: Young female sitting in bed and in no acute distress, appears acutely ill, well-developed, well-nourished, appropriately interactive. HEENT: Normocephalic, atraumatic. External ears without defect. Pupils equal, round, and reactive to light. Anicteric sclerae, moist conjunctivae, and no lid lag. Oropharynx free of erythema and cobble stoning with moist mucosa. Neck: Supple with full range of motion. No lymphadenopathy or thyromegaly. Nuchal rigidity improved with flexion of head 40?. Cardiovascular: Regular rate and rhythm without murmurs, rubs, or gallops appreciated. Pulmonary: Clear to auscultation bilaterally without crackles, wheezes, or rhonchi. Normal respiratory effort with no use of accessory muscles. Abdomen: Soft, bowel sounds present, nontender, nondistended. No hepatosplenomegaly or masses appreciated. Extremities: No clubbing, cyanosis, or edema. Skin: Normal temperature, turgor, and texture; no rash, ulcers, or subcutaneous nodules appreciated. Neurological: Cranial nerves grossly intact. Meningitis with nuchal rigidity improved. Psychiatric: Normal mood and affect. Slightly tearful. Alert and oriented to person, place, and time. 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 1. Acute aseptic HSV 2 meningitis, present on admission. Active. -Patient presented with severe thunderclap headache radiating down spine, fever, nausea, and nuchal rigidity. -Lumbar puncture performed in ED demonstrated normal WBC 2, RBC 232, elevated protein 151, normal glucose 48, and PCR positive for HSV 2. -CT brain without contrast did not demonstrate any acute intracranial abnormalities. Noted chronic postsurgical changes present related to a posterior suboccipital decompression unchanged and without recurrent Chiari malformation. -CT soft tissue neck with contrast demonstrated postoperative changes related to a occipital decompression and small cervical disc bulges. -Received acyclovir 840 mg x1 in ED based on reported body weight. Continue acyclovir (based on actual measured weight) 920 mg IV every 8 hours. -Ordered lead level to assure not contributing to neurological cecal a as patient works in a lead plant, pending. -Continue Zofran 4 mg IV every 8 hours as needed for nausea. -Discontinued IV fluids as patient appears adequately hydrated. -Received Decadron 10 mg IV x1 in ED for anti-inflammatory purposes. -Continue pain control with: Acetaminophen 650 mg every 6 hours as needed for mild pain or fever, Toradol 30 mg every 6 hours as needed for mild pain/anti- inflammatory, oxycodone increased from 5 mg to 7.5 every 4 hours as needed for moderate to severe pain and Dilaudid 1 mg IV increased from every 6 hours to every 4 hours ONLY for severe breakthrough pain. Added cyclobenzaprine 10 mg every 8 hours as needed for muscle spasm to help reduce muscle tension of neck due to headache. 2. Opiate dependence on Suboxone, chronic, present on admission. Stable. -Continue pain control as above. Patient will need to be of opiate for 12-24 hours before restarting Suboxone. 3. Insomnia, chronic, present on admission. Stable. -Continue home mirtazapine 50 mg daily at bedtime and added melatonin 9 mg daily at bedtime as needed for insomnia. Code status: Full code VTE prophylaxis: Enoxaparin and SCDs Disposition: Patient remains hospitalized for symptomatic control of severe meningeal headache. Quality VTE Deep Vein Thrombosis/Pulmonary Embolism Present on Admission: No
[2019-10-25] MEDS: PANTOPRAZOLE 40 MG VIAL IV (11:22)
[2019-10-25] MEDS: DOCUSATE 100 MG CAPSULE PO (11:22)
[2019-10-25] MEDS: polyethylene glycoL 3350 17 GM POWD.PACK PO (11:22)
[2019-10-25 12:00] VITALS: BP 140/89; PULSE 82; RESP 15; TEMP 36.7; O2SAT 99
[2019-10-25 14:02] LABS: Add Manual Diff / Slide Review NO; Basophils Absolute Auto 0 /uL (0-100); Basophils Percent Auto 0.4 % (0-2); Eosinophils Absolute Auto 0 /uL (0-450); Eosinophils Percent Auto 0.2 % (2-4); Hematocrit 34.7 % (36-46); Hemoglobin 12.2 g/dL (12.0-16.0); Lymphocytes Absolute Auto 2600 /uL (1100-4500); Lymphocytes Percent Auto 24.7 % (25-40); Mean Corpuscular HGB Conc 35.1 % (30-36); Mean Corpuscular Hemoglobin 32.7 PG (26-34); Mean Corpuscular Volume 93.1 fL (80-100); Monocytes Absolute Auto 700 /uL (0-900); Neutrophils Absolute Auto 7000 /uL (1500-7000); Neutrophils Percent Auto 67.7 % (50-75); Platelet Count 282 X10^3/uL (150-400); Red Blood Cell Count 3.73 X10^6/uL (4.0-5.2); Red Cell Distribution Width 12.8 % (11.6-14.8); White Blood Cell Count 10.4 X10^3/uL (4.5-11.0)
[2019-10-25 14:14] LABS: Alanine Aminotransferase 15 IU/L (<35); Albumin Globulin Ratio 1.3 (1.0-2.8); Alkaline Phosphatase 50 U/L (38-126); Aspartate Aminotransferase 19 IU/L (14-36); BUN Creatinine Ratio 19.3 (6-22); Bilirubin Total 0.5 mg/dL (0.2-1.3); Blood Urea Nitrogen 11 mg/dL (7-17); Calcium 9.2 mg/dL (8.4-10.2); Carbon Dioxide 25 mmol/L (22-32); Chloride 108 mmol/L (98-107); Estimated Glomerular Filt Rate > 60.0 mL/min (>60); Glucose 115 mg/dL (70-100); HEMOLYSIS < 15 (0-50); Magnesium 2.1 mg/dL (1.6-2.3); Potassium 3.8 mmol/L (3.4-5.1); Sodium 141 mmol/L (137-145)
--- NOTE | 2019-10-25 15:30 | PC.NURSE ---
shift summary: Patient tolerating meals, denies n/v/d. Requested stool softners (given as ordered) for help with bowel movement. Pain relief from 8-9 aching and sharp in head and neck down to a tolerable level of 5/10 per patient today with prn medications as ordered. Up to bathroom ad lyudmila, steady on feet. Denies lightheadedness or dizziness. Reports that ice packs prn are helpful. Patient finally able to rest at this time, asleep in bed. Call light within reach.
[2019-10-25 16:24] VITALS: BP 138/68; PULSE 98; RESP 16; TEMP 37.2; O2SAT 99
[2019-10-25 20:17] VITALS: BP 128/64; PULSE 81; RESP 18; TEMP 37.5; O2SAT 97
[2019-10-25] MEDS: SODIUM CHLORIDE 0.9% FLUSH 10 ML IV (21:33)
[2019-10-25] MEDS: MIRTAZAPINE 15 MG TABLET PO (21:37)
[2019-10-25 23:10] VITALS: BP 129/76; PULSE 80; RESP 18; TEMP 36.6; O2SAT 96
[2019-10-26] MEDS: ACETAMINOPHEN 325 MG TABLET 650 MG PO (00:05)
[2019-10-26] MEDS: OXYCODONE IR 5 MG TABLET 7.5 MG PO ×3 (00:05→08:51)
--- NOTE | 2019-10-26 00:34 | PC.NURSE ---
Director Of Manufacturing Operations Note: 0010: Awake, asking for Oxycodone. IV in place in rt AC. Remains on telemetry. Vital signs stable. Up to bathroom independently: gait is steady. Medicated with Oxycodone 7.5mg and Tylenol 650mg.
[2019-10-26 05:08] VITALS: BP 142/83; PULSE 73; RESP 18; TEMP 37.1; O2SAT 96
[2019-10-26] MEDS: ACYCLOVIR IV (05:10)
[2019-10-26] MEDS: DEXTROSE 5% IV (05:10)
[2019-10-26] MEDS: WATER IV (05:10)
[2019-10-26] MEDS: SODIUM CHLORIDE 0.9% FLUSH 10 ML IV ×2 (05:11→08:37)
--- NOTE | 2019-10-26 05:21 | PC.NURSE ---
Addendum entered by Pily Aguila R.N. 10/26/19 06:14: States pain is only minimally improved so medicated with Flexeril and given ice pack. Original Note: Patient states she slept well during the night. Does complain of 7/10 posterior headache which she describes as throbbing; medicated with Oxycodone. States she is feeling well enough to go home today as pain has been able to be controlled with po meds.
[2019-10-26] MEDS: CYCLOBENZAPRINE 10 MG TABLET PO (06:11)
[2019-10-26 08:00] VITALS: O2SAT 96
[2019-10-26 08:07] VITALS: BP 134/80; PULSE 74; RESP 16; TEMP 36.6; O2SAT 98
[2019-10-26] MEDS: DOCUSATE 100 MG CAPSULE PO (08:35)
[2019-10-26] MEDS: polyethylene glycoL 3350 17 GM POWD.PACK PO (08:36)
[2019-10-26] MEDS: HEPARIN 5,000 UNIT/ML VIAL 5000 UNIT SUBCUT (08:36)
[2019-10-26] MEDS: PANTOPRAZOLE 40 MG VIAL IV (08:36)
--- NOTE | 2019-10-26 08:48 | P.DS_ITS ---
History of Present Illness History of Present Illness Date Patient Seen: 10/26/19 Time Patient Seen: 08:48 Chief complaint: n/v skin hurts head is pounding Narrative: As per Dr. 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 The patient reports that 2 days ago she was at the park and returned home and began to have a bruised feeling on her back between her shoulder blades. She was certain that she must have gotten bit by a spider. The next day she reports she awoke with the worst headache she has ever had in her life. She reports that her headache was worse than her neurosurgery. She developed a fever of 100.5 ?F, could not walk due to severe headache and nausea prompting her to come to the ED. She reports that her headache radiates down her spine to the mid subscapular area. She describes the pain as a pinching and burning sensation. She also endorses neck stiffness and diaphoresis from fever. She has no other complaints and denies chest pain, shortness of breath, abdominal pain, vomiting, dysuria, diarrhea constipation. The ED provider, Dr. Jolley, spoke with the patient's previous neurologist Dr. Guan at [facility] who agreed that an LP should be performed. The lumbar puncture was performed and demonstrated HSV 2 meningitis and she received acyclovir 10 mg/kg. The patient now complains of pain at LP site that radiates down right leg and describes it as same sensation as meningeal headache which is pinching and burning in sensation. The patient is admitted for observation of aseptic HSV 2 meningitis and symptom control. Discharge Providers Provider Date of admission: 10/24/19 07:50 Discharge Date: 10/26/19 Primary care physician: Jarocho Mckeon MD Discharge provider: Alfonso Martinez DO Summary Hospital Course Discharge Diagnosis: Please see hospital course by problem list noted below. 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 She was admitted for HSV2 meningitis and treated with IV acyclovir and pain medications. She had improved symptoms over the course of her admission and was discharged home once tolerating pain with oral medications only. 1. Acute aseptic HSV 2 meningitis, present on admission. Active. -Patient presented with severe thunderclap headache radiating down spine, fever, nausea, and nuchal rigidity. Improved with -Lumbar puncture performed in ED demonstrated normal WBC 2, RBC 232, elevated pr otein 151, normal glucose 48, and PCR positive for HSV 2. -CT brain without contrast did not demonstrate any acute intracranial abnormalities. Noted chronic postsurgical changes present related to a posterior suboccipital decompression unchanged and without recurrent Chiari malformation. -CT soft tissue neck with contrast demonstrated postoperative changes related to a occipital decompression and small cervical disc bulges. -Received acyclovir 840 mg x1 in ED based on reported body weight. Continued acyclovir (based on actual measured weight) 920 mg IV every 8 hours while admitted and will continue outpatient acyclovir 800 mg PO TID given improvement. -Ordered lead level to assure not contributing to neurological cecal a as patient works in a lead plant, pending. -patient received adequate fluid resuscitation upon admission. -Received Decadron 10 mg IV x1 in ED for anti-inflammatory purposes. -Continue pain control with: Acetaminophen 650 mg every 6 hours as needed for mild pain or fever, oxycodone increased from 7.5 every 4 hours as needed for moderate to severe pain. Added cyclobenzaprine 10 mg every 8 hours as needed for muscle spasm to help reduce muscle tension of neck due to headache which helped immensely prior to discharge. -further recommended discontinuation of chronic NSAIDs which can also cause an aseptic meningitis and normal WBC count on admission. 2. Opiate dependence on Suboxone, chronic, present on admission. Stable. -Continue pain control as above. Patient will need to be of opiate for 12-24 hours before restarting Suboxone. She was counseled on this and will continue opiates until pain is controlled and then resume suboxone. 3. Insomnia, chronic, present on admission. Stable. -Continue home mirtazapine 50 mg daily at bedtime and added melatonin 9 mg daily at bedtime as needed for insomnia. Time Spent with Patient Time spent: Greater than 30 minutes Exam Vital Signs (past 8 hours): - 10/26/19 05:08 10/26/19 08:00 10/26/19 08:07 Temperature 98.8 F 97.9 F Pulse Rate 73 74 Respiratory Rate 18 16 Blood Pressure 142/83 H 134/80 Pulse Oximetry 96 96 98 Oxygen Delivery Method Room Air Oxygen Flow Rate 0 Narrative Exam Narrative: General: Young female sitting in bed and in no acute distress, appears acutely ill, well-developed, well-nourished, appropriately interactive. HEENT: Normocephalic, atraumatic. External ears without defect. Pupils equal, round, and reactive to light. Anicteric sclerae, moist conjunctivae, and no lid lag. Oropharynx free of erythema and cobble stoning with moist mucosa. Neck: Supple with full range of motion. No lymphadenopathy or thyromegaly. Nuchal rigidity improved with flexion of head almost to chest. Cardiovascular: Regular rate and rhythm without murmurs, rubs, or gallops appreciated. Pulmonary: Clear to auscultation bilaterally without crackles, wheezes, or rhonchi. Normal respiratory effort with no use of accessory muscles. Abdomen: Soft, bowel sounds present, nontender, nondistended. No hepatosplenomegaly or masses appreciated. Extremities: No clubbing, cyanosis, or edema. Skin: Normal temperature, turgor, and texture; no rash, ulcers, or subcutaneous nodules appreciated. Neurological: Cranial nerves grossly intact. Meningitis with nuchal rigidity improved as noted above. Strength +5/5 in UE and LE b/l. Psychiatric: Normal mood and affect. Alert and oriented to person, place, and time. Objective Labs Result Diagrams: 10/25/19 13:50 10/25/19 13:50 Labs: Laboratory Results - last 24 hr 10/25/19 10/25/19 13:50 13:50 WBC 10.4 RBC 3.73 L Hgb 12.2 Hct 34.7 L MCV 93.1 MCH 32.7 MCHC 35.1 RDW 12.8 Plt Count 282 Neut % (Auto) 67.7 Lymph % (Auto) 24.7 L Lea % (Auto) 7.0 Eos % (Auto) 0.2 L Baso % (Auto) 0.4 Neut # (Auto) 7000 Lymph # (Auto) 2600 Lea # (Auto) 700 Eos # (Auto) 0 Baso # (Auto) 0 Sodium 141 Potassium 3.8 Chloride 108 H Carbon Dioxide 25 BUN 11 Creatinine 0.57 Estimated GFR > 60.0 BUN/Creatinine Ratio 19.3 Glucose 115 H Calcium 9.2 Magnesium 2.1 Total Bilirubin 0.5 AST 19 ALT 15 Alkaline Phosphatase 50 Total Protein 7.0 Albumin 4.0 Globulin 3.0 Albumin/Globulin Ratio 1.3 Discharge Plan Discharge Plan Patient Disposition: Home Discharge comment: You were admitted to the hospital with meningitis. You improved with antiviral therapy and pain control. Please transition to your s uboxone after short continued period of oxycodone for pain relief. Consider stopping NSAID medication as well as this can sometimes cause a meningitis as well. Discharge orders & Medications Prescriptions: New acetaminophen 325 mg Tablet 650 mg PO Q6HR PRN (Reason: Fever/Mild Pain (1-3)) 7 Days RF: 0 cyclobenzaprine 10 mg Tablet 10 mg PO Q8HR PRN (Reason: Spasms) 7 Days Qty: 20 RF: 0 oxycodone 5 mg Tablet 7.5 mg PO Q4H PRN (Reason: Pain, Moderate (4-6)) 3 Days Qty: 27 RF: 0 acyclovir 800 mg tablet 800 mg PO TID 10 Days Qty: 30 RF: 0 Continued mirtazapine 15 mg tablet 15 mg PO BEDTIME RF: 0 Discontinued buprenorphine-naloxone [Suboxone] 8-2 mg film 2 ea Sublingual QAM RF: 0 Follow up/Referrals: Jarocho Mckeon MD [Primary Care Provider] - Discharge Health Status Health Concerns: Viral / HSV meningitis Diet/Activity/Treatments Diet: Diet as Tolerated Activity: As tolerated Visit Report/Discharge Packet Visit Report Forms: Patient Portal/API, Stroke Signs & Symptoms Discharge Data Primary Care Provider: Jarocho Mckeon Attending Provider: Maya Meek Admit Date/Time: 10/24/19 07:50 Discharges patient from system. Discharge Date/Time: 10/26/19 10:06 Quality VTE Deep Vein Thrombosis/Pulmonary Embolism Present on Admission: No
--- NOTE | 2019-10-26 09:23 | PC.NURSE ---
Day shift note: Patient awake, alert, and pleasant. Discharged home per MD order, VSS and afebrile. States feels much improved from previous day. Ambulating independently in room. Discharge instructions given to patient, discussed importance of F/U with Dr. Mckeon and new medications. Verbalized understanding of instructions. Discharged home via private vehicle.
== END 2019-10-26 10:06 | disposition home or self-care (01) ==
LOC: ED 07:02 → AC 07:52 → ICU 08:07 → AC 08:13
PROVIDERS: Admitting Provider Internal Medicine; Emergency Provider Emergency Medicine; PCP Internal Medicine; Referring Provider Emergency Medicine; Visit Provider Internal Medicine
DX: B00.3 Herpesviral meningitis (principal); R51 Headache; G47.00 Insomnia, unspecified; F11.21 Opioid dependence, in remission
CPT/HCPCS: 36415; 62270; 70450; 70491; 80048; 80053; 82945; 83605; 83655; 83735; 84157; 85025; 85651; 86140; 87040; 87070; 87205; 87798; 89051; 96361; 96365; 96366; 96372; 96375; 96376; 99284; G0378; C9113; J1100; J1170; J1644; J1885; J2405; J2765; Q9967

== ENCOUNTER → 2020-10-17 12:54 | Outpatient (CLI) | payer OTHER, MEDICAID, SELFPAY ==
[2019-10-24 08:38] VITALS: BMI 33.8
--- NOTE | 2020-10-17 12:59 | DI.RAD.S_ITS ---
PROCEDURE: XR WRIST LT 2V INDICATIONS: wrist pain TECHNIQUE: 2 views of the wrist were acquired. COMPARISON: None. FINDINGS: Bones: There is cortical lucency at the distal radial articular surface, although if there is no history of trauma this could be projectional artifact or from prior remote trauma. Scattered degenerative subchondral sclerosis and spurring. Soft tissues: No suspicious soft tissue calcifications. IMPRESSION: Cortical irregularity at the distal radial articular surface raising possibility of fracture although if there is no recent history of trauma, this could be remote fracture deformity or projectional artifact. Please correlate to point tenderness and history. If the patient's pain or other symptoms persist, consider further evaluation with MRI Dictated by: Rahul Gallardo M.D. on 10/17/2020 at 13:58 Approved by: Rahul Gallardo M.D. on 10/17/2020 at 14:01
== END ==
PROVIDERS: PCP Physician Assistant; Referring Provider Physician Assistant; Visit Provider Physician Assistant
DX: M25.532 Pain in left wrist (principal)
CPT/HCPCS: 73100